=== PATIENT | female | born 1950 | race Caucasian/White ===

== ENCOUNTER 2023-07-12 14:03 | Inpatient (IN) | payer MEDICARE, SELFPAY ==
--- NOTE | ~2023-07-12 | US_ITS ---
Ultrasound paracentesis History: Ascites. Retroperitoneal mass Risks and benefits and possible complications were discussed with the patient and consent form was signed. A safe pocket of ascitic fluid was identified using ultrasound guidance, and the overlying skin was marked. The abdomen prepped and draped in sterile fashion. 1% lidocaine was used as a local anesthetic. Using ultrasound guidance, a 5 fr catheter was placed into the ascitic pocket. 1.0 liters of de la o fluid was removed passively. The catheter was then removed. A few artist's representative images from before and after the examination were obtained. The procedure was performed by Gal Jiménez PA-C and supervised by Dr. Duarte. US/US paracentesis abd w/image Impression: Ultrasound-guided paracentesis as described above. No immediate complications
--- NOTE | ~2023-07-12 | CT_ITS ---
EXAMINATION: CT ANGIOGRAM OF THE CHEST WITH AND WITHOUT CONTRAST (CT PULMONARY ANGIOGRAM FOR PE) CLINICAL INFORMATION: Reason for Exam SOB COMPARISON: None available. TECHNIQUE: Prior to contrast administration, noncontrast localization images were obtained. Subsequently, multidetector volumetric imaging was performed from the thoracic inlet to below the diaphragms following the administration of 80 mL Omnipaque 350 intravenous contrast. No contrast reaction reported Sagittal, coronal, and MIP oblique sagittal reformatted images were obtained on the CT workstation, uploaded to PACS, and reviewed. This CT examination was performed using dose optimization techniques as appropriate, variously including the following: *Automated exposure control *Adjustment of mA and/or kV according to patient size (this includes techniques or standardized protocols for targeted exams where dose is matched to indication/reason for exam; i.e. extremities or head) *Use of iterative reconstruction technique Total exam dose-length product 249 mGy-cm FINDINGS: QUALITY OF STUDY/CONTRAST BOLUS: Satisfactory. PULMONARY ARTERIES: No large central emboli, there are very small peripheral nonocclusive filling defect in peripheral branches interlobar suggesting small emboli. Carreno images. No cardiac strain or septal bowing. THORACIC AORTA: No aneurysm. LUNG: Compression atelectasis at lung bases bilaterally due to adjacent pleural effusion. No CT evidence of pulmonary metastasis. PLEURA: Bilateral pleural effusions right more than left. MEDIASTINUM: There are enlarged anterior mediastinal carinal lymph nodes. Pretracheal lymph node measures 1.3 x 1.1 cm. No evidence of septal bowing or right heart strain. CORONARY ARTERY CALCIFICATION: Few coronary calcifications. CHEST WALL/AXILLA: No axillary or internal mammary lymphadenopathy. OSSEOUS STRUCTURES: No acute or suspicious osseous abnormality. UPPER ABDOMEN: Unremarkable. No reflux of contrast into the hepatic veins to suggest elevated right heart pressures. CT/CT angio chest PE protocol IMPRESSION: 1. No large central emboli, there are very small peripheral nonocclusive filling defects in peripheral branches suggesting small emboli found in peripheral branches to left lower lobe, Carreno images.. 2. Bilateral pleural effusions right more than left. 3. Compression atelectasis at lung bases bilaterally. 4. Enlarged mediastinal lymph nodes concerning for possible metastasis.. VTE: positive. (Referring physician staff is being called, by physician staff assistance, to be alerted of the above critical findings and recommendations.) 07/12/2023 8:01 PM EM
--- NOTE | ~2023-07-12 | US_ITS ---
EXAMINATION: US VENOUS ULTRASOUND WITH DOPPLER LOWER EXTREMITY, BILATERAL CLINICAL INFORMATION: Pain and edema. Pulmonary embolism. COMPARISON: None available. TECHNIQUE: Ultrasound of the deep veins is performed from the hip to the calf with compression sonography and color and pulse Doppler assessment. Spectral analysis with color-flow imaging is performed. FINDINGS: RIGHT: There is normal venous compression and respiratory variation and augmented flow. The visualized common femoral vein, superficial femoral vein, profunda femoral vein, popliteal vein, and the trifurcation region shows no evidence of deep venous thrombosis. There is no significant popliteal fossa cyst. LEFT: There is normal venous compression and respiratory variation and augmented flow. The visualized common femoral vein, superficial femoral vein, profunda femoral vein, popliteal vein, and the trifurcation region shows no evidence of deep venous thrombosis. There is no significant popliteal fossa cyst. If the patient's symptoms persist, followup ultrasound in 5 days 7 days might be of value to exclude proximal propagation from a non-visualized calf vein. US/US venous duplex LE BI IMPRESSION: No DVT demonstrated in the bilateral lower extremities.
--- NOTE | ~2023-07-12 | CT_ITS ---
EXAMINATION: CT abdomen pelvis w IV con CLINICAL INFORMATION: Reason for Exam Abdominal pain COMPARISON: No prior CT available for comparison. TECHNIQUE: Multidetector volumetric imaging was performed from the superior aspect of the liver through the pubic symphysis 85 mL Omnipaque 350 injected Sagittal and coronal reformatted images were obtained on the technologist's workstation. This CT examination was performed using dose optimization techniques as appropriate, variously including the following: *Automated exposure control *Adjustment of mA and/or kV according to patient size (this includes techniques or standardized protocols for targeted exams where dose is matched to indication/reason for exam; i.e. extremities or head) *Use of iterative reconstruction technique DLP: 932 mGy-cm FINDINGS: LOWER THORAX: Bilateral pleural effusion and atelectasis at lung bases. HEPATOBILIARY: No focal hepatic lesions. No biliary ductal dilatation. GALLBLADDER: Gallbladder not visualized might have been removed or contracted. SPLEEN: Spleen is normal in size. PANCREAS: Small atrophic pancreas. STOMACH AND GASTROINTESTINAL TRACT: Stomach is decompressed unopacified. There is a small sliding hiatal hernia. No evidence of bowel obstruction. Not visualized might have been obscured. ADRENALS: No adrenal nodules. KIDNEYS/URETERS: No hydronephrosis, stones or solid mass lesions. URINARY BLADDER: Bladder is decompressed unopacified. PELVIC VISCERA: There is a free fluid in the dependent portion of the pelvis. PERITONEUM: There is large amount of ascites. LYMPH NODES: Coalescence of bulky soft tissue retroperitoneal mass engulfing the aorta and IVC measures 9.6 x 5.1 cm, most likely bulky lymphadenopathy raising concern for lymphoma, multiple large mesenteric lymph nodes and soft tissue opacities concerning for mesenteric seeding, large abdominal central mass 11.5 x 8.5 cm, which could be a coalescence of mesenteric lymph nodes or peritoneal mass such as GI ST tumor among others. VASCULAR:Aorta is normal in size encased by retroperitoneal adenopathy, mild atheromatous plaques, no aneurysm. BONES, ABDOMINAL WALL AND SOFT TISSUES: Age-appropriate changes of the spine and skeletal system, no destructive osteolytic or osteosclerotic bone lesion found CT/CT abdomen pelvis w IV con IMPRESSION: 1. Coalescence of bulky soft tissue retroperitoneal mass engulfing the aorta and IVC measures 9.6 x 5.1 cm, multiple large mesenteric lymph nodes and soft tissue opacities concerning for mesenteric seeding, large abdominal central mass 11.5 x 8.5 cm, which could be a coalescence of mesenteric lymph nodes or peritoneal mass such neoplasm as GIST tumor among others. 2. Large amount of ascites. Ultrasound-guided peritoneal paracentesis could be utilized for oncology analysis. 3. Bilateral pleural effusion and atelectasis at lung bases. 4. Atrophic pancreas.
--- NOTE | 2023-07-12 14:08 | ECG_ITS ---
Test Reason : WEAKNESS Blood Pressure : / mmHG Vent. Rate : 099 BPM Atrial Rate : 099 BPM P-R Int : 192 ms QRS Dur : 150 ms QT Int : 410 ms P-R-T Axes : 000 -16 125 degrees QTc Int : 526 ms Sinus rhythm with Premature atrial complexes Left bundle branch block Abnormal ECG No previous ECGs available Referred By: Yuliet Olivier Electronically Signed By:LEONOR CRONIN MD
[2023-07-12 14:21] VITALS: BP 109/63; PULSE 98; RESP 20; TEMP 36.6; O2SAT 95; BMI 30.1
--- NOTE | 2023-07-12 14:25 | ED.GENADULT ---
HPI - General Adult General Chief complaint: Back Pain/Injury Stated complaint: Unable to ambulate/Not eating Time Seen by Provider: 07/12/23 16:12 History of Present Illness HPI narrative: 73 y/o F patient; PMH T2DM not currently on any medications or followed with a doctor; presents from home reporting decreased ambulation secondary to lower back pain that radiates into her abdomen. She states she has had this pain since a chiropractor adjusted her spine in December 2022. She came in today reporting worsening of the pain. She states she has been taking aspirin for pain control and using a heating pad around the clock. She otherwise endorses a loss of appetite due to her pain. for the last 2 - 3 months. She states she has not seen a doctor in several years. 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 Family (son) at bedside are also concerned that patient has significant lower extremity swelling. Patient does endorse worsening shortness of breath with exertion. Related Data Allergies Allergy/AdvReac Type Severity Reaction Status Date / Time lactose Allergy Gastrointestinal Verified 07/12/23 14:28 Upset Review of Systems Review of Systems: Yes all other systems are reviewed and are negative [facility] Past Medical History Attestation statement: The following information was validated with the patient. Source: unable to obtain Social History Social History Smoked in Last 30 Days: No Use of substances other than those prescribed or required for medical reasons: No Advance Directives: No Advance Directives Information Provided: No Do you have a plan to hurt others: No Plan Physical Exam ED Vital Signs: Vital Signs - 24 hr 07/12/23 14:21 07/12/23 18:20 07/12/23 19:38 Temperature 97.9 F 96.9 F 97.9 F Pulse Rate 98 103 H 98 Respiratory Rate 20 14 18 Blood Pressure 109/63 117/69 106/56 L Pulse Oximetry 95 92 96 Oxygen Delivery Method Room Air Room Air Room Air 07/12/23 20:24 Temperature Pulse Rate Respiratory Rate Blood Pressure 106/61 Pulse Oximetry Oxygen Delivery Method BMI result Body Mass Index 30.1 Patient is afebrile and hemodynamically stable Const General: cooperative HENMT Head: Yes normal to inspection and Yes atraumatic Eyes General: appearance normal, both eyes and all related structures Pupils: Equal, round and reactive pupils present EOM: EOMs intact bilaterally Neck Neck: Yes normal visual inspection, Yes full ROM, Yes supple and No tender Chest Chest palpation & inspection: normal inspection of the chest and normal palpation of entire chest wall Resp Effort & Inspection: normal respiratory effort, able to speak in complete sentences, no cough and no respiratory distress Auscultation: clear to auscultation bilaterally Cardio Other: 2 - 3+ bilateral lower extremity edema Rate: regular rate Rhythm: regular rhythm Peripheral pulses: Peripheral pulses 2+ throughout GI Other: Abdomen is significantly distended with non-focal abdominal tenderness Palpation (GI): Soft to palpation, not firm, no guarding and not rigid Auscultation: normal bowel sounds Back/Spine/Pelvis Cervical Spine: normal cervical lordosis and cervical ROM normal Thoracic/Lumbar Spine: thoracic and lumbar spine normal to inspection Neuro Cranial nerves: Yes Equal, round and reactive pupils present Course Course Course Narrative: This is an RME done by DEONNA Olivier: Additional HPI, ROS, PE not included below will be deferred to primary provider. 73 year old female presents w/ back pain X 7.5 months worsening after chiropractor manipulated back yesterday. Reports cant walk since then. Unable to walk due to back wont support me . Reports legs have been swelling recently also. Feeling weak overall. Hasnt been feeling well. Urinating less than usual however no incontience of stool or urine. NO saddle paresthesias. Appearance: Alert.? Oriented X3.? No acute cardiopulmonary distress distress.? Head: Normocephalic, atraumatic, no step-offs or deformities Neck: Normal inspection.? Neck supple.? CVS: Pulses normal.? 2+ pitting edema b/l Respiratory: No respiratory distress.? Skin: ? Normal skin color. Extremities: Global weakness. Back: No midline tenderness, no C-spine tenderness, full range of motion, No CVA tenderness bilaterally. Painful rom to back Neuro: Oriented X 3.? No motor deficit.? No sensory deficit. Reports cant walk due to weakness and pain Reevaluation(s) Reevaluation #1: Patient is afebrile and hemodynamically stable. Labs reviewed: Noted to have thrombocythemia. Anion gap 21. Magnesium 1.7. Repleted. BNP 857. Albumin 3.2, protein 6.1. Elevated betahydroxybuterate. Suspect anion gap and betahydroxybuterate 2/2 to starvation ketoacidosis. Concern elevated BNP with lower extremity edema and ascites 2/[address] CT with bulky soft tissue retroperitoneal mass engulfing the aorta and IVC with multiple large mesenteric lymph nodes and soft tissue opacities. Large amount of ascites. Bilateral pleural effusions. No large central emboli but very small peripheral nonocclusive filling defects in peripheral branches suggesting small emboli in LLL. CT with concern for malignancy of unknown origin. Given new likely malignancy, significant ascites, bilateral pleural effusions, and elevated BNP with low albumin/protein - will plan on admission to hospital. Provided dose Lasix 20mg IV for lasix naive patient. Provided dose Lovenox for PE therapeutic treatment at 1mg/kg dosing. Plan: Admit to hospitalist Condition: Stable Medications Administered Discontinued Medications Generic Name Dose Route Start Last Admin Trade Name Freq PRN Reason Stop Dose Admin Furosemide 20 mg 07/12/23 20:09 07/12/23 20:24 Furosemide 20 Mg/2 Ml Vial IVPUSH 07/12/23 20:10 20 mg ONCE ONE Administration Protocol Magnesium Sulfate/Dextrose 1 gm in 100 mls @ 100 mls/hr 07/12/23 20:01 07/12/23 20:26 Magnesium Sulfate/D5w IV 07/12/23 21:00 100 mls/hr ONCE ONE Administration Iohexol 100 ml 07/12/23 17:08 07/12/23 17:09 Iohexol 350 Mg/Ml 100 Ml Infus..Btl IV 07/12/23 17:09 85 ml ONCE ONE Administration Medical Decision Making Lab Data 07/12/23 14:16 07/12/23 14:16 Labs: Lab Results 07/12/23 07/12/23 07/12/23 Range/Units 14:16 16:43 17:59 WBC 9.7 (4.8-10.8) X10*3/uL RBC 4.77 (4.20-5.50) X10*6/uL Hgb 12.9 (12.0-16.0) g/dl Hct 39.6 (37.0-47.0) % MCV 83.0 (80.0-98.0) fL MCH 27.0 (27.0-33.0) pg MCHC 32.6 (31.0-35.0) g/dl RDW 14.5 (11.0-16.0) % Plt Count 546 H (160-400) X10*3/uL MPV 9.5 (9.4-12.3) fL Immature Gran % (Auto) 0.6 H (0.0-0.4) % Neut % (Auto) 80.3 H (45-73) % Lymph % (Auto) 11.8 L (20-40) % [place] % (Auto) 6.7 (2-11) % Eos % (Auto) 0.1 (0-4) % Baso % (Auto) 0.5 (0-2) % Lymph # (Auto) 1.2 (1.2-4.9) X10*3/uL [place] # (Auto) 0.7 (0.1-1.2) X10*3/uL Eos # (Auto) 0.0 (0.0-0.4) X10*3/uL Baso # (Auto) 0.1 (0.0-0.2) X10*3/uL Abs Immat Gran (auto) 0.06 H (0.00-0.03) X10*3/uL Absolute Neuts (auto) 7.8 (2.0-8.3) x10*3/uL Absolute Nucleated RBC 0.000 (0.0-0.012) X10*3/uL Nucleated RBC % (auto) 0.0 (0.0-0.2) /100WBC ESR 44 H (0-20) MM/HR VBG pH (7.32-7.43) VBG pCO2 mmHg VBG pO2 mmHg VBG HCO3 (22-26) mmol/L VBG O2 Saturation % VBG Base Excess mmol/L Sodium 138 (135-145) mmol/L Potassium 3.8 (3.3-5.1) mmol/L Chloride 100 (96-108) mmol/L Carbon Dioxide 21 L (22-29) mmol/L Anion Gap 21 H (12-20) BUN 15 (9-16) mg/dL Creatinine 0.91 (0.5-1.4) mg/dL Estim Creat Clear Calc 52.4 Estimated GFR > 60 Random Glucose 123 H (60-115) mg/dL Estimat Average Glucose 157 mg/dL Hemoglobin A1c % 7.1 H (<6.0) % Lactic Acid 1.0 (0.5-2.0) mmol/L Calcium 9.1 (8.4-10.2) mg/dL Magnesium 1.7 (1.6-2.6) mg/dL Total Bilirubin 0.5 (0.0-1.0) mg/dL AST 35 H (5-31) U/L ALT < 5 (0-31) U/L Alkaline Phosphatase 71 (39-117) U/L Troponin I High Sens 17.0 (<3.5-17.0) ng/L C-Reactive Protein 6.11 H (< or = 0.50) mg/dL B-Natriuretic Peptide 857 H (<100) pg/mL Total Protein 6.1 L (6.5-8.0) g/dL Albumin 3.2 L (3.5-5.0) g/dL Triglycerides 129 (<150) mg/dL Cholesterol 184 (<200) mg/dL LDL Cholesterol, Calc 126 H (<100) mg/dL HDL Cholesterol 33 L (>40) mg/dL Lipase 9 (8-78) U/L Beta-Hydroxybutyrate 2.65 H 2.93 H (0.02-0.27) mmol/L Ethyl Alcohol < 10 mg/dL Influenza Type A (PCR) NEGATIVE (Negative) Influenza Type B (PCR) NEGATIVE (Negative) RSV RNA Qual (PCR) NEGATIVE (Negative) SARS-CoV-2 RNA (RT-PCR) NEGATIVE (Negative) 07/12/23 Range/Units 18:02 WBC (4.8-10.8) X10*3/uL RBC (4.20-5.50) X10*6/uL Hgb (12.0-16.0) g/dl Hct (37.0-47.0) % MCV (80.0-98.0) fL MCH (27.0-33.0) pg MCHC (31.0-35.0) g/dl RDW (11.0-16.0) % Plt Count (160-400) X10*3/uL MPV (9.4-12.3) fL Immature Gran % (Auto) (0.0-0.4) % Neut % (Auto) (45-73) % Lymph % (Auto) (20-40) % [place] % (Auto) (2-11) % Eos % (Auto) (0-4) % Baso % (Auto) (0-2) % Lymph # (Auto) (1.2-4.9) X10*3/uL [place] # (Auto) (0.1-1.2) X10*3/uL Eos # (Auto) (0.0-0.4) X10*3/uL Baso # (Auto) (0.0-0.2) X10*3/uL Abs Immat Gran (auto) (0.00-0.03) X10*3/uL Absolute Neuts (auto) (2.0-8.3) x10*3/uL Absolute Nucleated RBC (0.0-0.012) X10*3/uL Nucleated RBC % (auto) (0.0-0.2) /100WBC ESR (0-20) MM/HR VBG pH 7.44 H (7.32-7.43) VBG pCO2 38 mmHg VBG pO2 45 mmHg VBG HCO3 26 (22-26) mmol/L VBG O2 Saturation 71.0 % VBG Base Excess 2.8 mmol/L Sodium (135-145) mmol/L Potassium (3.3-5.1) mmol/L Chloride (96-108) mmol/L Carbon Dioxide (22-29) mmol/L Anion Gap (12-20) BUN (9-16) mg/dL Creatinine (0.5-1.4) mg/dL Estim Creat Clear Calc Estimated GFR Random Glucose (60-115) mg/dL Estimat Average Glucose mg/dL Hemoglobin A1c % (<6.0) % Lactic Acid (0.5-2.0) mmol/L Calcium (8.4-10.2) mg/dL Magnesium (1.6-2.6) mg/dL Total Bilirubin (0.0-1.0) mg/dL AST (5-31) U/L ALT (0-31) U/L Alkaline Phosphatase (39-117) U/L Troponin I High Sens (<3.5-17.0) ng/L C-Reactive Protein (< or = 0.50) mg/dL B-Natriuretic Peptide (<100) pg/mL Total Protein (6.5-8.0) g/dL Albumin (3.5-5.0) g/dL Triglycerides (<150) mg/dL Cholesterol (<200) mg/dL LDL Cholesterol, Calc (<100) mg/dL HDL Cholesterol (>40) mg/dL Lipase (8-78) U/L Beta-Hydroxybutyrate (0.02-0.27) mmol/L Ethyl Alcohol mg/dL Influenza Type A (PCR) (Negative) Influenza Type B (PCR) (Negative) RSV RNA Qual (PCR) (Negative) SARS-CoV-2 RNA (RT-PCR) (Negative) Radiology Impression Discussion of test interpretation with radiology: I have reviewed the radiologist's reading. Radiologist Impression: EXAMINATION: CT abdomen pelvis w IV con CLINICAL INFORMATION: Reason for Exam Abdominal pain COMPARISON: No prior CT available for comparison. TECHNIQUE: Multidetector volumetric imaging was performed from the superior aspect of the liver through the pubic symphysis 85 mL Omnipaque 350 injected Sagittal and coronal reformatted images were obtained on the technologist's workstation. This CT examination was performed using dose optimization techniques as appropriate, variously including the following: *Automated exposure control *Adjustment of mA and/or kV according to patient size (this includes techniques or standardized protocols for targeted exams where dose is matched to indication/reason for exam; i.e. extremities or head) *Use of iterative reconstruction technique DLP: 932 mGy-cm FINDINGS: LOWER THORAX: Bilateral pleural effusion and atelectasis at lung bases. HEPATOBILIARY: No focal hepatic lesions. No biliary ductal dilatation. GALLBLADDER: Gallbladder not visualized might have been removed or contracted. SPLEEN: Spleen is normal in size. PANCREAS: Small atrophic pancreas. STOMACH AND GASTROINTESTINAL TRACT: Stomach is decompressed unopacified. There is a small sliding hiatal hernia. No evidence of bowel obstruction. Not visualized might have been obscured. ADRENALS: No adrenal nodules. KIDNEYS/URETERS: No hydronephrosis, stones or solid mass lesions. URINARY BLADDER: Bladder is decompressed unopacified. PELVIC VISCERA: There is a free fluid in the dependent portion of the pelvis. PERITONEUM: There is large amount of ascites. LYMPH NODES: Coalescence of bulky soft tissue retroperitoneal mass engulfing the aorta and IVC measures 9.6 x 5.1 cm, most likely bulky lymphadenopathy raising concern for lymphoma, multiple large mesenteric lymph nodes and soft tissue opacities concerning for mesenteric seeding, large abdominal central mass 11.5 x 8.5 cm, which could be a coalescence of mesenteric lymph nodes or peritoneal mass such as GI ST tumor among others. VASCULAR:Aorta is normal in size encased by retroperitoneal adenopathy, mild atheromatous plaques, no aneurysm. BONES, ABDOMINAL WALL AND SOFT TISSUES: Age-appropriate changes of the spine and skeletal system, no destructive osteolytic or osteosclerotic bone lesion found CT/CT abdomen pelvis w IV con IMPRESSION: 1. Coalescence of bulky soft tissue retroperitoneal mass engulfing the aorta and IVC measures 9.6 x 5.1 cm, multiple large mesenteric lymph nodes and soft tissue opacities concerning for mesenteric seeding, large abdominal central mass 11.5 x 8.5 cm, which could be a coalescence of mesenteric lymph nodes or peritoneal mass such neoplasm as GIST tumor among others. 2. Large amount of ascites. Ultrasound-guided peritoneal paracentesis could be utilized for oncology analysis. 3. Bilateral pleural effusion and atelectasis at lung bases. 4. Atrophic pancreas. EXAMINATION: CT ANGIOGRAM OF THE CHEST WITH AND WITHOUT CONTRAST (CT PULMONARY ANGIOGRAM FOR PE) CLINICAL INFORMATION: Reason for Exam SOB COMPARISON: None available. TECHNIQUE: Prior to contrast administration, noncontrast localization images were obtained. Subsequently, multidetector volumetric imaging was performed from the thoracic inlet to below the diaphragms following the administration of 80 mL Omnipaque 350 intravenous contrast. No contrast reaction reported Sagittal, coronal, and MIP oblique sagittal reformatted images were obtained on the CT workstation, uploaded to PACS, and reviewed. This CT examination was performed using dose optimization techniques as appropriate, variously including the following: *Automated exposure control *Adjustment of mA and/or kV according to patient size (this includes techniques or standardized protocols for targeted exams where dose is matched to indication/reason for exam; i.e. extremities or head) *Use of iterative reconstruction technique Total exam dose-length product 249 mGy-cm FINDINGS: QUALITY OF STUDY/CONTRAST BOLUS: Satisfactory. PULMONARY ARTERIES: No large central emboli, there are very small peripheral nonocclusive filling defect in peripheral branches interlobar suggesting small emboli. Carreno images. No cardiac strain or septal bowing. THORACIC AORTA: No aneurysm. LUNG: Compression atelectasis at lung bases bilaterally due to adjacent pleural effusion. No CT evidence of pulmonary metastasis. PLEURA: Bilateral pleural effusions right more than left. MEDIASTINUM: There are enlarged anterior mediastinal carinal lymph nodes. Pretracheal lymph node measures 1.3 x 1.1 cm. No evidence of septal bowing or right heart strain. CORONARY ARTERY CALCIFICATION: Few coronary calcifications. CHEST WALL/AXILLA: No axillary or internal mammary lymphadenopathy. OSSEOUS STRUCTURES: No acute or suspicious osseous abnormality. UPPER ABDOMEN: Unremarkable. No reflux of contrast into the hepatic veins to suggest elevated right heart pressures. CT/CT angio chest PE protocol IMPRESSION: 1. No large central emboli, there are very small peripheral nonocclusive filling defects in peripheral branches suggesting small emboli found in peripheral branches to left lower lobe, Carreno images.. 2. Bilateral pleural effusions right more than left. 3. Compression atelectasis at lung bases bilaterally. 4. Enlarged mediastinal lymph nodes concerning for possible metastasis.. Discharge Plan Discharge Clinical Impression: Mass of soft tissue, Abdominal ascites, Pleural effusion Patient Disposition: Admitted As Inpatient Print Language: Burkinan
[2023-07-12 14:28] LABS: MANUAL DIFF FLAG NO
[2023-07-12 14:36] LABS: Basophils Absolute Auto 0.1 X10*3/uL (0.0-0.2); Basophils Percent Auto 0.5 % (0-2); Eosinophils Percent Auto 0.1 % (0-4); Hematocrit 39.6 % (37.0-47.0); Hemoglobin 12.9 g/dl (12.0-16.0); Imm Gran Abs Auto 0.06 X10*3/uL (0.00-0.03); Imm Gran Pct Auto 0.6 % (0.0-0.4); Lymphocytes Absolute Auto 1.2 X10*3/uL (1.2-4.9); Lymphocytes Percent Auto 11.8 % (20-40); Mean Corpuscular HGB Conc 32.6 g/dl (31.0-35.0); Mean Platelet Volume 9.5 fL (9.4-12.3); Monocytes Absolute Auto 0.7 X10*3/uL (0.1-1.2); Monocytes Percent Auto 6.7 % (2-11); Neutrophils Absolute Auto 7.8 x10*3/uL (2.0-8.3); Neutrophils Percent Auto 80.3 % (45-73); Platelet Count 546 X10*3/uL (160-400); Red Blood Count 4.77 X10*6/uL (4.20-5.50); Red Cell Distribution Width 14.5 % (11.0-16.0); White Blood Count 9.7 X10*3/uL (4.8-10.8)
[2023-07-12 14:55] LABS: Alanine Aminotransferase < 5 U/L (0-31); Albumin Level 3.2 g/dL (3.5-5.0); Alkaline Phosphatase 71 U/L (39-117); Anion Gap 21 (12-20); Aspartate Amino Transferase 35 U/L (5-31); Bilirubin Total 0.5 mg/dL (0.0-1.0); Blood Urea Nitrogen 15 mg/dL (9-16); C Reactive Protein 6.11 mg/dL (< or = 0.50); Calcium 9.1 mg/dL (8.4-10.2); Carbon Dioxide 21 mmol/L (22-29); Chloride 100 mmol/L (96-108); Creatinine Clr Calc Pharmacy 52.4; Estimated Glomerular Filt Rate > 60; Ethanol < 10 mg/dL; Glucose Random 123 mg/dL (60-115); Magnesium 1.7 mg/dL (1.6-2.6); Potassium 3.8 mmol/L (3.3-5.1); Sodium 138 mmol/L (135-145); Total Protein 6.1 g/dL (6.5-8.0)
[2023-07-12 15:37] LABS: B Type Natriuretic Peptide 857 pg/mL (<100)
[2023-07-12 15:45] LABS: Influenza A PCR NEGATIVE (Negative); Influenza B PCR NEGATIVE (Negative); Resp Syncy Virus RNA Qual PCR NEGATIVE (Negative); SARS COV2 PCR INHOUSE NEGATIVE (Negative)
[2023-07-12] MEDS: iohexoL 350 MG/ML 100 ML INFUS..BTL IV (17:09)
[2023-07-12 17:12] LABS: Beta-Hydroxybutyrate 2.65 mmol/L (0.02-0.27); Cholesterol 184 mg/dL (<200); HDL Cholesterol 33 mg/dL (>40); LDL Cholesterol Calculated 126 mg/dL (<100); Lipase 9 U/L (8-78); Triglycerides 129 mg/dL (<150)
[2023-07-12 17:43] LABS: Erythrocyte Sedimentation Rate 44 MM/HR (0-20)
[2023-07-12 18:09] LABS: VBG Base Excess 2.8 mmol/L; VBG HCO3 26 mmol/L (22-26); VBG pCO2 38 mmHg; VBG pH 7.44 (7.32-7.43); VBG pO2 45 mmHg
[2023-07-12 18:10] LABS: Venous Blood Gas Refer to POC result
[2023-07-12 18:20] VITALS: BP 117/69; PULSE 103; RESP 14; TEMP 36.1; O2SAT 92
[2023-07-12 18:26] LABS: Beta-Hydroxybutyrate 2.93 mmol/L (0.02-0.27)
[2023-07-12 18:48] LABS: Estimated Average Glucose 157 mg/dL; Hemoglobin A1c % 7.1 % (<6.0)
[2023-07-12 19:38] VITALS: BP 106/56; PULSE 98; RESP 18; TEMP 36.6; O2SAT 96
--- NOTE | 2023-07-12 19:39 | MHC.EDTECH ---
This tech took over care of patient at 1900,hourly rounds and vitals completed. Bladder Scanned patient per order and is 405 RN Roseann made aware.family at bedside and call orr in reach
[2023-07-12 20:24] VITALS: BP 106/61
[2023-07-12] MEDS: Furosemide 20 MG/2 ML VIAL IVPUSH (20:24)
--- NOTE | 2023-07-12 20:24 | P.HPHOSP_ITS ---
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 Patient regularly sees a chiropractor for chronic lower back pain, and reports symptoms began last November when she began experiencing lower back pain after one of her chiropractic adjustments. Has experienced chronic back pain since then which has been constantly present, though waxing and waning in intensity. Yesterday pt's chiropractic session left her in excruciating pain and has had difficulty ambulating since then. Patient describes her pain as beginning in her back and wrapping around her upper abdomen, worse in the LUQ and RUQ. Reports increased lower leg edema times 1-2 months, increased shortness of breath and difficulty breathing especially on exertion. He is only able to walk few feet without having to stop to catch her breath. Noticed abdominal swelling and distention only a few days ago. States she has not been eating or drinking much lately and has had increasing fatigue especially in the past few months. Denies fever, chills, nausea, vomiting. No diarrhea. Denies chest pain/pressure, palpitations. In the ED pt was Labs were significant for AST 35, C-reactive protein 6.11, BNP 857, protein 6.1, albumin 3.2, beta hydroxybutyrate 2.65. Tested negative for flu, RSV, and COVID. CT?of abdomen and pelvis found bulky soft tissue retroperitoneal mass engulfing the aorta and IVC measuring 9.6 x 5.1 cm, multiple large mesenteric lymph nodes, soft tissue opacities, and large abdominal central mass measuring 11.5 x 8.5 cm. Also found a large amount of ascites and bilateral pleural effusions and atelectasis at lung bases. CTA of chest found no large central emboli but evidence of small emboli in peripheral branches of left lower lobe. Also found bilateral pleural effusions with right more than left, compression atelectasis at lung bases bilaterally, and enlarged mediastinal lymph nodes concerning for possible metastasis. EKG demonstrated sinus rhythm with PACs and left bundle branch block with QTc prolonged at [address] elevations in V1, V2, and V3. No prior EKGs for comparison. Pt was treated with furosemide 20 mg IV magnesium sulfate 1 g. Pt will be admitted to the hospital for treatment and further evaluation of intractable abdominal and back pain, ascites, and lower leg edema in the setting of multiple abdominal masses suspicious for malignancy, as well as left lower lobe pulmonary emboli. Review of Systems 2 Review of Systems: Lower back pain Upper abdominal pain Lower leg edema Increased shortness of breath and RIZZO Abdominal swelling Anorexia Denies fever, chills, nausea, vomiting, diarrhea PMFSH Medical History (Updated 07/12/23 @ 23:26 by DEONNA Iverson) Diet-controlled type 2 diabetes mellitus Social History Patient Tobacco Use Status: Never used Tobacco Meds Allergies Allergy/AdvReac Type Severity Reaction Status Date / Time lactose Allergy Gastrointestinal Verified 07/12/23 14:28 Upset Active Medications: Current Medications Magnesium Sulfate/Dextrose (Magnesium Sulfate/D5w) 1 gm in 100 mls @ 100 mls/hr IV ONCE ONE Stop: 07/12/23 21:00 Home Medications ?Medication ?Instructions ?Recorded ?Confirmed ?Last Taken ?Type No Known Home Meds 07/12/23 07/12/23 Unknown History Physical Exam 2 Vital Signs and Narrative: Vital Signs: Last Vital Signs Temp 97.9 F 07/12/23 19:38 Pulse 98 07/12/23 19:38 Resp 18 07/12/23 19:38 BP 106/56 L 07/12/23 19:38 Pulse Ox 96 07/12/23 19:38 O2 Del Method Room Air 07/12/23 19:38 BMI result Body Mass Index 30.1 Constitutional: Alert, in no acute distress. Mental Status: Oriented to person, place and time. Eyes: Pupils are equal, round, and reactive to light. Ear, Nose, and Throat: Oropharynx clear, mucous membranes moist. Ears and nose without deformities. Trachea midline. Respiratory: Clear to auscultation bilaterally. No wheezing, rales, or rhonchi. Cardiovascular: S1, S2 regular. 2/6 murmurs heard at left sternal border. Gastrointestinal: Abdomen firm, distended, with RUQ and LUQ tenderness. Normal bowel sounds. Neurologic: Cranial nerves II-XII are grossly intact bilaterally. No focal neurological deficits. Moves all extremities spontaneously. Skin: Warm, dry. Back: Lower leg sided tenderness. Extremities: 2+ bilateral lower leg pitting edema. Psychiatric: Normal mood and affect. Results Labs 07/12/23 14:16 07/12/23 14:16 Labs: Laboratory Results - last 24 hr 07/12/23 07/12/23 07/12/23 14:16 16:43 17:59 MCV 83.0 MCH 27.0 MCHC 32.6 RDW 14.5 Plt Count 546 H MPV 9.5 Immature Gran % (Auto) 0.6 H Neut % (Auto) 80.3 H Lymph % (Auto) 11.[address] [place] % (Auto) 6.7 Eos % (Auto) 0.1 Baso % (Auto) 0.5 Lymph # (Auto) 1.2 [place] # (Auto) 0.7 Eos # (Auto) 0.0 Baso # (Auto) 0.1 Abs Immat Gran (auto) 0.06 H Absolute Neuts (auto) 7.8 Absolute Nucleated RBC 0.000 Nucleated RBC % (auto) 0.0 ESR 44 H VBG pH VBG pCO2 VBG pO2 VBG HCO3 VBG O2 Saturation VBG Base Excess Anion Gap 21 H Estim Creat Clear Calc 52.4 Estimated GFR > 60 Random Glucose 123 H Estimat Average Glucose 157 Hemoglobin A1c % 7.1 H Lactic Acid 1.0 Calcium 9.1 Magnesium 1.7 Total Bilirubin 0.5 AST 35 H ALT < 5 Alkaline Phosphatase 71 Troponin I High Sens 17.0 C-Reactive Protein 6.11 H B-Natriuretic Peptide 857 H Total Protein 6.1 L Albumin 3.2 L Triglycerides 129 Cholesterol 184 LDL Cholesterol, Calc 126 H HDL Cholesterol 33 L Lipase 9 Beta-Hydroxybutyrate 2.65 H 2.93 H Ethyl Alcohol < 10 Influenza Type A (PCR) NEGATIVE Influenza Type B (PCR) NEGATIVE RSV RNA Qual (PCR) NEGATIVE SARS-CoV-2 RNA (RT-PCR) NEGATIVE 07/12/23 18:02 MCV MCH MCHC RDW Plt Count MPV Immature Gran % (Auto) Neut % (Auto) Lymph % (Auto) [place] % (Auto) Eos % (Auto) Baso % (Auto) Lymph # (Auto) [place] # (Auto) Eos # (Auto) Baso # (Auto) Abs Immat Gran (auto) Absolute Neuts (auto) Absolute Nucleated RBC Nucleated RBC % (auto) ESR VBG pH 7.44 H VBG pCO2 38 VBG pO2 45 VBG HCO3 26 VBG O2 Saturation 71.0 VBG Base Excess 2.8 Anion Gap Estim Creat Clear Calc Estimated GFR Random Glucose Estimat Average Glucose Hemoglobin A1c % Lactic Acid Calcium Magnesium Total Bilirubin AST ALT Alkaline Phosphatase Troponin I High Sens C-Reactive Protein B-Natriuretic Peptide Total Protein Albumin Triglycerides Cholesterol LDL Cholesterol, Calc HDL Cholesterol Lipase Beta-Hydroxybutyrate Ethyl Alcohol Influenza Type A (PCR) Influenza Type B (PCR) RSV RNA Qual (PCR) SARS-CoV-2 RNA (RT-PCR) Imaging Radiologist's Impressions: Impressions Abdomen/Pelvis CT 07/12/23 17:14 IMPRESSION: 1. Coalescence of bulky soft tissue retroperitoneal mass engulfing the aorta and IVC measures 9.6 x 5.1 cm, multiple large mesenteric lymph nodes and soft tissue opacities concerning for mesenteric seeding, large abdominal central mass 11.5 x 8.5 cm, which could be a coalescence of mesenteric lymph nodes or peritoneal mass such neoplasm as GIST tumor among others. 2. Large amount of ascites. Ultrasound-guided peritoneal paracentesis could be utilized for oncology analysis. 3. Bilateral pleural effusion and atelectasis at lung bases. 4. Atrophic pancreas. Chest CTA 07/12/23 17:14 IMPRESSION: 1. No large central emboli, there are very small peripheral nonocclusive filling defects in peripheral branches suggesting small emboli found in peripheral branches to left lower lobe, Carreno images.. 2. Bilateral pleural effusions right more than left. 3. Compression atelectasis at lung bases bilaterally. 4. Enlarged mediastinal lymph nodes concerning for possible metastasis.. VTE: positive. 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 Pulmonary emboli CTA of chest showing left lower lung pulmonary emboli Will treat with therapeutic Lovenox 80 mg subcu b.i.d., started 07/12/2023 Will get venous duplex ultrasound of lower legs bilaterally Monitor on telemetry Patient with intractable abdominal and lower back pain Likely secondary to retroperitoneal and peritoneal masses seen on CT Concerning for malignancy with metastasis Analgesics for pain management Oncology consult PT consult for difficulty walking secondary to pain Ascites Likely secondary to abdominal masses Will schedule paracentesis with possible mass biopsy Will give albumin Follow peritoneal fluid labs Question of CHF Patient with lower leg edema, elevated BNP, pleural effusions, increasing SOB CT of abd showing soft tissue mass engulfing IVC and aorta Will treat with Lasix 20 mg IV daily Follow lytes, Mag, I/O Daily weights, low-salt diet Echocardiogram Cardiology consult Admit to telemetry Left bundle branch block EKG showing left bundle-branch block and ST elevations in V1, V2, and V3 Patient asymptomatic: No chest pain/pressure, palpitations No prior EKGs on record for comparison Cardiology consult Monitor on telemetry Full Code Attending:?Dr. Singletary DVT Prophylaxis: On therapeutic Lovenox Pt will require a hospitalization of at least two nights for treatment of?multiple issues, including pulmonary emboli, intractable abdominal and back pain, ascites, and lower leg edema in the setting abdominal masses concerning for malignancy. Quality Stroke Does the patient have a stroke diagnosis?: No VTE Prior VTE?: No VTE Risk Level:: Medical - moderate - high VTE Device Contraindication: Treatment Not Indicated VTE Drug Contraindication: N/A - Med Ordered
[2023-07-12] MEDS: Magnesium Sulfate/D5W 1 GM/100 ML PIGGYBACK IV (20:26)
--- NOTE | 2023-07-12 21:09 | MHC.EDTECH ---
Patient got up to commode with a 1 assist,patient urinated 200MLS of yellow urine,sample collected and sent to lab.
[2023-07-12 21:23] LABS: Amphetamine Screen Urine Not Detected (Not Detect); Barbiturates, Urine Not Detected (Not Detect); Benzodiazepines Screen Urine Not Detected (Not Detect); Buprenorphine Scr Not Detected (Not Detect); Cannabinoid Screen Urine Not Detected (Not Detect); Cocaine Screen Urine Not Detected (Not Detect); Fentanyl, urine Not Detected (Not Detect); Methadone Screen, Urine Not Detected (Not Detect); Opiate Screen Urine Not Detected (Not Detect); Oxycodone Screen Urine Not Detected (Not Detect); Phencyclidine Screen Urine Not Detected (Not Detect)
[2023-07-12 22:00] VITALS: BP 123/68; PULSE 97; RESP 16; TEMP 36.8; O2SAT 94
--- NOTE | 2023-07-12 22:09 | MHC.EDTECH ---
Hourly rounds and vitals completed,patient is resting at this time. Belongings list completed and copy placed in chart
[2023-07-12] MEDS: Enoxaparin Sodium 80 MG/0.8 ML SYRINGE SUBCUT (22:15)
[2023-07-12 23:06] LABS: INTERNATIONAL NORM RATIO 1.1 (0.9-1.1); Prothrombin Time 13.5 SEC (11.1-13.3)
[2023-07-12 23:09] LABS: Partial Thromboplastin Time 36.5 SEC (26.0-36.8)
[2023-07-12 23:26] VITALS: BP 105/52; PULSE 94; RESP 16; TEMP 36.9; O2SAT 94
--- NOTE | 2023-07-12 23:30 | MHC.EDTECH ---
Hourly rounds and vitals complete, water given per request of patient,call orr in reach
[2023-07-13] VITALS (9 sets, daily range): BP systolic 94–132; BP diastolic 48–73; PULSE 76–88; RESP 16–18; TEMP 36.5–36.7; O2SAT 92–96
[2023-07-13] MEDS: 0.9 % Sodium Chloride Flush 3 ML SYRINGE IVFLUSH ×4 (00:40→23:35)
[2023-07-13] MEDS: Albumin Human 25 % 100 ML IV ×2 (00:41→02:20)
--- NOTE | 2023-07-13 02:30 | MHC.EDTECH ---
Patient got up to commode with minimal assistance,patient urinated hourly rounds and vitals completed,call orr in reach
--- NOTE | 2023-07-13 02:31 | PC.NURSE ---
Patient denies allergy to Morphine, stating that she had it in the past without allergic reactions. Dr Singletary notified, per OK to administer Morphine for pain management.
[2023-07-13] MEDS: Morphine Sulfate 4 MG/ML CARTRIDGE IVPUSH ×2 (02:33→23:39)
--- NOTE | 2023-07-13 03:43 | MHC.EDTECH ---
Hourly rounds and vitals completed,BP is low 94/54 RN was made aware.Patient is resting at this time,call orr in reach
[2023-07-13 04:32] LABS: Hematocrit 32.1 % (37.0-47.0); Hemoglobin 10.3 g/dl (12.0-16.0); Mean Corpuscular HGB Conc 32.1 g/dl (31.0-35.0); Mean Corpuscular Volume 84.3 fL (80.0-98.0); Mean Platelet Volume 9.7 fL (9.4-12.3); Platelet Count 427 X10*3/uL (160-400); Red Blood Count 3.81 X10*6/uL (4.20-5.50); Red Cell Distribution Width 14.6 % (11.0-16.0); White Blood Count 9.2 X10*3/uL (4.8-10.8)
[2023-07-13 04:53] LABS: Anion Gap 21 (12-20); Blood Urea Nitrogen 16 mg/dL (9-16); Carbon Dioxide 20 mmol/L (22-29); Chloride 99 mmol/L (96-108); Creatinine Clr Calc Pharmacy 50.8; Estimated Glomerular Filt Rate 58; Glucose Random 113 mg/dL (60-115); Magnesium 1.9 mg/dL (1.6-2.6); Potassium 3.4 mmol/L (3.3-5.1); Sodium 137 mmol/L (135-145)
--- NOTE | 2023-07-13 07:00 | CA_ITS ---
Transthoracic Echocardiogram Patient (Last, First, Middle): Corazon Pagan, Gender: Female Date of : 1950 Age: 73 Procedure Date: 07/13/2023 Procedure Type: Transthoracic Echocardiogram Location: ER Height: 160.02 cm Weight: 77.11 kg BSA: 1.80 m2 Heart Rate: bpm BP: 120 / 54 mmHg Sweat Band Separator: DANO Referring MD: Yury YING Umbrella Tipper Machine: Cj Tariq MD Symptoms: Elevated BNP, LLE abd mass engulfing IVC and aorta Study Quality: Adequate ECG Rhythm: Sinus Conclusions: - 1. Moderately dilated left ventricle with severely reduced LV ejection fraction of 15-20% 2. Mildly dilated left atrium 3. Moderate low-flow aortic stenosis 4. Moderate mitral calcification with mild mitral regurgitation 5. Normal RV systolic pressure and normal right atrial pressures 6. No gross pericardial effusion Findings Procedure Information Contrast agent, definity, is being given per protocol without apparent complications. Left Ventricle Moderately increased left ventricular cavity size. There is normal left ventricular wall thickness. The left ventricular systolic function is severely decreased. The visually estimated ejection fraction is between 15 20%. There is paradoxical septal motion consistent with a left bundle branch block. Diastolic function is indeterminate on the basis of available data. Right Ventricle Normal right ventricular cavity size and systolic function. Atria The left atrium is mildly dilated. Interatrial shunt cannot be excluded. The right atrium is normal in size. Aortic Valve There is moderate calcification of the aortic valve. There is mild thickening of the aortic valve. There is moderate aortic valve stenosis. The peak aortic gradient is 20 mmHg.The mean gradient is 11 mmHg. The aortic valve area is 1.22 cm2. There is no aortic valve regurgitation. Mitral Valve There is mild anterior and severe posterior mitral leaflet thickening. There is moderate mitral annular calcification. There is mild mitral valve regurgitation. There is no mitral valve stenosis. Pulmonic Valve The pulmonic valve was not well visualized. Tricuspid Valve Likely normal tricuspid valve structure and function. There is mild tricuspid valve regurgitation. The right ventricular systolic pressure is normal. The right ventricular systolic pressure is 28 mmHg. Normal right atrial pressure. There is no evidence of pulmonary hypertension. Great Vessels The aorta was not well visualized. The pulmonary artery was not well visualized. Venous The inferior vena cava is normal in size and collapses greater than 50% with inspiration. Pericardium/Pleural There is no evidence of pericardial effusion. Prior Study Comparison No prior study available for comparison. Measurements 2D Linear Measurements IVSd: 0.75 0.6-0.9/0.6-1.0 cm LVIDd: 5.90 3.9-5.3/4.2-5.9 cm LVIDd Index: 3.28 2.4-3.2/2.2-3.1 cm/m2 LVIDs: 5.49 2.0-3.6 cm LVPWd: 0.85 0.7-1.1 cm Ao Root: 3.20 2.1-3.5 cm LA Diam: 3.80 2.7-3.8/3.0-4.0 cm LAIDs Index: 2.11 1.5-2.3 cm/m2 LV Mass: 224.28 67-162/88-224 g LV Mass Index: 124.60 43-95/49-115 g/m2 LVOT Diam: 2.20 3.0+(-)1.3 cm 2D Systolic Function EF 4C: 7.98 >55% EF 2C: 24.10 >55% EF BiP: 19.30 >55% Mitral Valve MV VTI: 0.41 MV Pk [place]: 1.75 MV Mn [place]: 0.84 MV Pk Grad: 12.00 MV Mn Grad: 4.00 MV Pk E: 1.45 MV Decel Time: 173.00 E'Lateral: 11.50 E'Medial: 7.07 E/E' Med: 20.50 E/E' Lat: 12.60 PHT: 51.00 MVA PHT: 4.31 MVA Continuity: 1.58 Decel Boyd: 8.39 Aortic Valve AoV Pk [place]: 2.24 AoV Mn [place]: 1.57 AoV VTI: 0.52 AoV Pk Grad: 20.00 Aov Mn Grad: 11.00 YONI Cont.VTI: 1.22 LVOT LVOT Pk [place]: 0.68 LVOT Mn [place]: 0.42 LVOT VTI: 0.17 LVOT Pk Grad: 2.00 LVOT Mn Grad: 1.00 LVOT Diam: 2.20 LVOT Area: 3.80 Diastolic Function MV Pk E: 1.45 E'Medial: 7.07 E/E' Med: 20.50 E' Laterial: 11.50 E/E' Lat: 12.60 Right Ventricle TAPSE (mm): 25.00 TVS' [place]: 9.00 Tricuspid Valve TR Pk [place]: 2.24 TR Pk Grad: 20.00 RA Press: 8.00 RVSP: 28.00 Great Vessels Aorta Ao Root-2D: 3.20 2.0-3.7 cm Pulmonary Valve PV Pk [place]: 1.12 Peak PV Grad: 5.00 Updated in Other Vendor System with Status of Final Cj Traiq MD electronically signed on 07/13/2023 2:38:04 PM with status of Final
--- NOTE | 2023-07-13 07:11 | PHA.MEDREC ---
Pharmacy Consult ? Medication Reconciliation Pharmacy has completed the medication reconciliation. Reviewed med rec done by nursing (Roseann). Patient also has no claim history.
[2023-07-13] MEDS: Furosemide 20 MG/2 ML VIAL IVPUSH (09:12)
[2023-07-13] MEDS: Enoxaparin Sodium 80 MG/0.8 ML SYRINGE 75 MG SUBCUT ×2 (09:13→23:34)
--- NOTE | 2023-07-13 09:28 | PC.NURSE ---
Alert and oriented, reports feeling better and that swelling in ankles has improved. Denies pain or discomfort, ate small amount for breakfast
--- NOTE | 2023-07-13 14:04 | P.CONCA_ITS ---
History of Present Illness History of Present Illness Date of Service: 07/13/23 Requesting physician: Suri Blair Consult reason: other (Elevated BNP, left bundle-branch block) Chief complaint: Ascites, LLE, multiple masses, ?CHF Narrative: I was consulted to see Corazon in cardiology consultation today as she came in with back pain which was unrelenting. Patient has not seen any physician for the last 5 years and says she has not on any home medications. She has diet- controlled diabetes. She had no other symptoms except for she is noticing leg swelling over the last few weeks in his also notice abdominal gradually swell up but she blames this sinus surgery many years ago although she has had abdominal enlargement over the last few weeks. She also complains of shortness of breath on exertion. Denies any exertional chest pain. No lightheadedness, syncope. Came to the hospital for the back pain and subsequently was noted to have bilateral small pulmonary embolism abdominal CT showing a large retroperitoneal mass and golfing the aorta in the IVC of unclear etiology with mediastinal lymphadenopathy consistent with metastatic disease. EKG showed left bundle- branch block. BNP was elevated at 850 range. She denies any orthopnea, PND although has leg edema as mentioned above. No palpitations, lightheadedness, syncope. Review of Systems 2 Constitutional: Constitutional: Reports weakness Eyes: Eyes: Reports no additional eye complaints Cardiovascular: Cardiovascular: Reports Abdominal Distension, Denies chest pain, Denies syncope, Reports leg edema, Denies palpitations, Reports dyspnea on exertion and Denies orthopnea Respiratory: Respiratory: Reports dyspnea on exertion Genitourinary: Genitourinary: Reports no additional female genitourinary complaints Neurologic: Denies syncope and Reports weakness Psychiatric: Psychiatric: Reports no additional psychiatric complaints Endocrine: Endocrine: Denies palpitations Allergic/Immunologic: Allergic/Immunologic: Reports no additional allergic/immunologic complaints [facility] Past Medical History Medical History Diet-controlled type 2 diabetes mellitus Social History Social History Patient Tobacco Use Status: Never used Tobacco Smoked in Last 30 Days: No Use of substances other than those prescribed or required for medical reasons: No Advance Directives: No Advance Directives Information Provided: No Do you have a plan to hurt others: No Plan Nutrition Risks: No Nutritional Risk Meds Allergies Allergy/AdvReac Type Severity Reaction Status Date / Time acetaminophen [From Tylenol] Allergy Difficulty Verified 07/13/23 00:37 Breathing hydromorphone Allergy Difficulty Verified 07/13/23 00:38 Breathing lactose Allergy Gastrointestinal Verified 07/12/23 14:28 Upset codeine AdvReac Intermediate Difficulty Verified 07/13/23 00:38 Breathing Active Medications: Current Medications Acetaminophen (Acetaminophen 325 Mg Tablet) 650 mg PO Q6H PRN PRN Reason: Mild pain, fever, or headache Benzonatate (Benzonatate 100 Mg Capsule) 100 mg PO TID PRN PRN Reason: Cough Docusate Sodium (Docusate Sodium 100 Mg Capsule) 100 mg PO DAILY PRN PRN Reason: Constipation Enoxaparin Sodium (Enoxaparin Sodium 80 Mg/0.8 Ml Syringe) 75 mg SUBCUT Q12H [facility] Last Admin: 07/13/23 09:13 Dose: 75 mg Furosemide (Furosemide 20 Mg/2 Ml Vial) 20 mg IVPUSH DAILY [facility]; Protocol Last Admin: 07/13/23 09:12 Dose: 20 mg Melatonin (Melatonin 3 Mg Tablet) 6 mg PO BEDTIME PRN PRN Reason: Insomnia Morphine Sulfate (Morphine Sulfate 4 Mg/Ml Cartridge) 4 mg IVPUSH Q4H PRN; Protocol PRN Reason: Pain, Severe (Pain Scale 7-10) Last Admin: 07/13/23 02:33 Dose: 4 mg Ondansetron HCl (Ondansetron Hcl 4 Mg/2 Ml Vial) 4 mg IVPUSH Q8H PRN PRN Reason: Nausea and Vomiting Sodium Chloride (0.9 % Sodium Chloride Flush 3 Ml Syringe) 3 ml IVFLUSH QSHIFT [facility] Last Admin: 07/13/23 09:13 Dose: 3 ml Home Medications ?Medication ?Instructions ?Recorded ?Confirmed ?Last Taken ?Type No Known Home Meds 07/12/23 07/12/23 Unknown History Physical Exam 2 Vital Signs: Vital Signs: Last Vital Signs Temp 98 F 07/13/23 08:00 Pulse 85 07/13/23 08:00 Resp 18 07/13/23 08:00 BP 120/54 L 07/13/23 09:12 Pulse Ox 96 07/13/23 08:00 O2 Del Method Room Air 05/18/24 07:30 BMI result Body Mass Index 30.1 Const: General: cooperative, comfortable, alert, awake and other (Pale) N utritional Appearance: overweight Orientation/consciousness: patient oriented x3 HEENT: Head: Yes normocephalic and Yes atraumatic Neck: Neck: Yes trachea midline, Yes supple and Yes no JVD Resp: Effort & Inspection: normal respiratory effort Auscultation: no rales, no rhonchi and breath sounds absent (Basis) Cardio: Jugular venous distension: no JVD Palpation: abnormal PMI displaced PMI Rhythm: regular rhythm Heart sounds: S1 normal heart sound present, S2 normal heart sound present, no click, no gallops and no murmurs GI: Auscultation: normal bowel sounds Skin: General skin exam: no rashes or lesions noted Neuro: General: patient oriented x3 Extrem: General: No clubbing, No cyanosis and Yes edema Objective Labs and Meds 07/13/23 04:11 07/13/23 04:11 Lab results: Laboratory Results - last 24 hr 07/12/23 07/12/23 07/12/23 14:16 16:43 17:59 WBC 9.7 RBC 4.77 Hgb 12.9 Hct 39.6 MCV 83.0 MCH 27.0 MCHC 32.6 RDW 14.5 Plt Count 546 H MPV 9.5 Immature Gran % (Auto) 0.6 H Neut % (Auto) 80.3 H Lymph % (Auto) 11.8 L [place] % (Auto) 6.7 Eos % (Auto) 0.1 Baso % (Auto) 0.5 Lymph # (Auto) 1.2 [place] # (Auto) 0.7 Eos # (Auto) 0.0 Baso # (Auto) 0.1 Abs Immat Gran (auto) 0.06 H Absolute Neuts (auto) 7.8 Absolute Nucleated RBC 0.000 Nucleated RBC % (auto) 0.0 ESR 44 H PT INR APTT VBG pH VBG pCO2 VBG pO2 VBG HCO3 VBG O2 Saturation VBG Base Excess Sodium 138 Potassium 3.8 Chloride 100 Carbon Dioxide 21 L Anion Gap 21 H BUN 15 Creatinine 0.91 Estim Creat Clear Calc 52.4 Estimated GFR > 60 Random Glucose 123 H Estimat Average Glucose 157 Hemoglobin A1c % 7.1 H Lactic Acid 1.0 Calcium 9.1 Magnesium 1.7 Total Bilirubin 0.5 AST 35 H ALT < 5 Alkaline Phosphatase 71 Troponin I High Sens 17.0 C-Reactive Protein 6.11 H B-Natriuretic Peptide 857 H Total Protein 6.1 L Albumin 3.2 L Triglycerides 129 Cholesterol 184 LDL Cholesterol, Calc 126 H HDL Cholesterol 33 L Lipase 9 Beta-Hydroxybutyrate 2.65 H 2.93 H Urine Opiates Screen Ur Buprenorphine Scrn Ur Oxycodone Screen Urine Methadone Screen Urine Fentanyl Screen Ur Barbiturates Screen Ur Phencyclidine Scrn Ur Amphetamines Screen U Benzodiazepines Scrn Urine Cocaine Screen U Marijuana (THC) Screen Ethyl Alcohol < 10 Influenza Type A (PCR) NEGATIVE Influenza Type B (PCR) NEGATIVE RSV RNA Qual (PCR) NEGATIVE SARS-CoV-2 RNA (RT-PCR) NEGATIVE 07/12/23 07/12/23 07/12/23 18:02 21:08 22:56 WBC RBC Hgb Hct MCV MCH MCHC RDW Plt Count MPV Immature Gran % (Auto) Neut % (Auto) Lymph % (Auto) [place] % (Auto) Eos % (Auto) Baso % (Auto) Lymph # (Auto) [place] # (Auto) Eos # (Auto) Baso # (Auto) Abs Immat Gran (auto) Absolute Neuts (auto) Absolute Nucleated RBC Nucleated RBC % (auto) ESR PT 13.5 H INR 1.1 APTT 36.5 VBG pH 7.44 H VBG pCO2 38 VBG pO2 45 VBG HCO3 26 VBG O2 Saturation 71.0 VBG Base Excess 2.8 Sodium Potassium Chloride Carbon Dioxide Anion Gap BUN Creatinine Estim Creat Clear Calc Estimated GFR Random Glucose Estimat Average Glucose Hemoglobin A1c % Lactic Acid Calcium Magnesium Total Bilirubin AST ALT Alkaline Phosphatase Troponin I High Sens C-Reactive Protein B-Natriuretic Peptide Total Protein Albumin Triglycerides Cholesterol LDL Cholesterol, Calc HDL Cholesterol Lipase Beta-Hydroxybutyrate Urine Opiates Screen Not Detected Ur Buprenorphine Scrn Not Detected Ur Oxycodone Screen Not Detected Urine Methadone Screen Not Detected Urine Fentanyl Screen Not Detected Ur Barbiturates Screen Not Detected Ur Phencyclidine Scrn Not Detected Ur Amphetamines Screen Not Detected U Benzodiazepines Scrn Not Detected Urine Cocaine Screen Not Detected U Marijuana (THC) Screen Not Detected Ethyl Alcohol Influenza Type A (PCR) Influenza Type B (PCR) RSV RNA Qual (PCR) SARS-CoV-2 RNA (RT-PCR) 07/13/23 04:11 WBC 9.2 RBC 3.81 L D Hgb 10.3 L D Hct 32.1 L MCV 84.3 MCH 27.0 MCHC 32.1 RDW 14.6 Plt Count 427 H MPV 9.7 Immature Gran % (Auto) Neut % (Auto) Lymph % (Auto) [place] % (Auto) Eos % (Auto) Baso % (Auto) Lymph # (Auto) [place] # (Auto) Eos # (Auto) Baso # (Auto) Abs Immat Gran (auto) Absolute Neuts (auto) Absolute Nucleated RBC 0.000 Nucleated RBC % (auto) 0.0 ESR PT INR APTT VBG pH VBG pCO2 VBG pO2 VBG HCO3 VBG O2 Saturation VBG Base Excess Sodium 137 Potassium 3.4 Chloride 99 Carbon Dioxide 20 L Anion Gap 21 H BUN 16 Creatinine 0.94 Estim Creat Clear Calc 50.8 Estimated GFR 58 Random Glucose 113 Estimat Average Glucose Hemoglobin A1c % Lactic Acid Calcium 9.0 Magnesium 1.9 Total Bilirubin AST ALT Alkaline Phosphatase Troponin I High Sens C-Reactive Protein B-Natriuretic Peptide Total Protein Albumin Triglycerides Cholesterol LDL Cholesterol, Calc HDL Cholesterol Lipase Beta-Hydroxybutyrate Urine Opiates Screen Ur Buprenorphine Scrn Ur Oxycodone Screen Urine Methadone Screen Urine Fentanyl Screen Ur Barbiturates Screen Ur Phencyclidine Scrn Ur Amphetamines Screen U Benzodiazepines Scrn Urine Cocaine Screen U Marijuana (THC) Screen Ethyl Alcohol Influenza Type A (PCR) Influenza Type B (PCR) RSV RNA Qual (PCR) SARS-CoV-2 RNA (RT-PCR) EKG shows normal sinus rhythm with left bundle-branch block. Imaging Radiologist's impression: Impressions Abdomen/Pelvis CT 07/12/23 17:14 IMPRESSION: 1. Coalescence of bulky soft tissue retroperitoneal mass engulfing the aorta and IVC measures 9.6 x 5.1 cm, multiple large mesenteric lymph nodes and soft tissue opacities concerning for mesenteric seeding, large abdominal central mass 11.5 x 8.5 cm, which could be a coalescence of mesenteric lymph nodes or peritoneal mass such neoplasm as GIST tumor among others. 2. Large amount of ascites. Ultrasound-guided peritoneal paracentesis could be utilized for oncology analysis. 3. Bilateral pleural effusion and atelectasis at lung bases. 4. Atrophic pancreas. Chest CTA 07/12/23 17:14 IMPRESSION: 1. No large central emboli, there are very small peripheral nonocclusive filling defects in peripheral branches suggesting small emboli found in peripheral branches to left lower lobe, Carreno images.. 2. Bilateral pleural effusions right more than left. 3. Compression atelectasis at lung bases bilaterally. 4. Enlarged mediastinal lymph nodes concerning for possible metastasis.. VTE: positive. (Referring physician staff is being called, by physician staff assistance, to be alerted of the above critical findings and recommendations.) 07/12/2023 8:01 PM EM Venous Duplex 07/12/23 22:00 IMPRESSION: No DVT demonstrated in the bilateral lower extremities. Assessment and Plan (1) Cardiomyopathy: Status: Acute Preliminary echo findings shows severe LV systolic dysfunction. Unclear as to the etiology as well as length of cardiomyopathy. Has underlying left bundle- branch block. Unclear as to how long she has had left bundle-branch block. Ischemia needs to be ruled out eventually although her main issue appears to be a large abdominal mass which is most likely responsible for abdominal distension leg edema. However congestive heart failure can not be entirely ruled out. Will suggest to gently diuresed with Lasix 20 mg IV b.i.d.. Continue monitor strict intake and output chart and continue monitor renal function as well as BNP. Would start her on low-dose valsartan therapy with 20 mg b.i.d. valsartan. Eventually if the blood pressure is tolerated will switch her to Entresto therapy. Once clinically more fluid euvolemic will start on metoprolol therapy for neurohormonal modulation as well. Will follow with you Procedures Date of Service Date of Service: 07/13/23
--- NOTE | 2023-07-13 14:33 | MHC.CM.PN ---
IMM 07/12. Pt self-care, lives at home alone in apartment, however 4 other relatives live in same apartment. HCP completed with pt, now on file. Pts son to transport her home at discharge. Pt does not have a PCP, local list given to pt.
--- NOTE | 2023-07-13 14:45 | MHC.EDTECH ---
patient requested a purewick be placed due to her having more and more trouble standing and transfering to the commode. this tech placed a purewick and patient tolerated well/
--- NOTE | 2023-07-13 15:35 | PM.HEMONCCN ---
Subjective - Subjective Chief complaint: abdominal tumor Patient: new to practice Consult date: 07/13/23 Primary Care Provider: None Physician HPI - Consult Narrative Reason for consult: abdominal tumor, ascites, adebopathy Narrative: Corazon Pagan is a 73 year old female with no PCP presenting with abdominal pain, mass, ascites and weakness. Review of Systems - Constitutional Reports anorexia - ENT Reports system reviewed and no additional complaints, except as documented - Cardiovascular Reports fast heart rate, Reports shortness of breath when lying down - Respiratory Reports dyspnea - Gastrointestinal Reports abdominal pain - Neurologic Reports system reviewed and no additional complaints, except as documented, Reports weakness, Denies syncope [facility] Medical History: Medical History (Last Reviewed 07/13/23 @ 14:11 by Cj Tariq MD) Diet-controlled type 2 diabetes mellitus Social History: Social History (Last Reviewed 07/13/23 @ 14:11 by Cj Tariq MD) Alcohol History Details: 1. How often do you have a drink containing alcohol?: a. Never AUDIT-C Alcohol total score: 0 Tobacco History: Patient Tobacco Use Status: Never used Tobacco Smoked in Last 30 Days: No Substance Use History: Use of substances other than those prescribed or required for medical reasons: No Advance Directives: Advance Directives: No Advance Directives Information Provided: No Homicidal Assessment: Do you have a plan to hurt others: No Plan Nutrition Assessment: Nutrition Risks: No Nutritional Risk Occupation Assessmet: service: No Home Medications and Allergies Current Medications: Current Medications Acetaminophen (Acetaminophen 325 Mg Tablet) 650 mg PO Q6H PRN PRN Reason: Mild pain, fever, or headache Benzonatate (Benzonatate 100 Mg Capsule) 100 mg PO TID PRN PRN Reason: Cough Docusate Sodium (Docusate Sodium 100 Mg Capsule) 100 mg PO DAILY PRN PRN Reason: Constipation Enoxaparin Sodium (Enoxaparin Sodium 80 Mg/0.8 Ml Syringe) 75 mg SUBCUT Q12H [facility] Last Admin: 07/13/23 09:13 Dose: 75 mg Furosemide (Furosemide 20 Mg/2 Ml Vial) 20 mg IVPUSH DAILY [facility]; Protocol Last Admin: 07/13/23 09:12 Dose: 20 mg Melatonin (Melatonin 3 Mg Tablet) 6 mg PO BEDTIME PRN PRN Reason: Insomnia Morphine Sulfate (Morphine Sulfate 4 Mg/Ml Cartridge) 4 mg IVPUSH Q4H PRN; Protocol PRN Reason: Pain, Severe (Pain Scale 7-10) Last Admin: 07/13/23 02:33 Dose: 4 mg Ondansetron HCl (Ondansetron Hcl 4 Mg/2 Ml Vial) 4 mg IVPUSH Q8H PRN PRN Reason: Nausea and Vomiting Sodium Chloride (0.9 % Sodium Chloride Flush 3 Ml Syringe) 3 ml IVFLUSH QSHIFT [facility] Last Admin: 07/13/23 09:13 Dose: 3 ml Home Medications ?Medication ?Instructions ?Recorded ?Confirmed ?Type No Known Home Meds 07/12/23 07/12/23 History Allergies Allergy/AdvReac Type Severity Reaction Status Date / Time acetaminophen [From Tylenol] Allergy Difficulty Verified 07/13/23 00:37 Breathing hydromorphone Allergy Difficulty Verified 07/13/23 00:38 Breathing lactose Allergy Gastrointestinal Verified 07/12/23 14:28 Upset codeine AdvReac Intermediate Difficulty Verified 07/13/23 00:38 Breathing Physical Exam Vital signs: Vital Signs Temp 98 F 07/13/23 08:00 Pulse 85 07/13/23 08:00 Resp 18 07/13/23 08:00 BP 120/54 L 07/13/23 09:12 Pulse Ox 96 07/13/23 08:00 O2 Del Method Room Air 07/13/23 07:30 Intake & Output 07/12/23 07/13/23 07/13/23 18:59 06:59 18:59 Intake Total 300 / 300 Balance 300 / 300 Intake: Intake, IV Amount 300 / 300 Albumin Human 25 % 100 ml @ 100 200 / 200 mls/hr IV Q1H [facility] Rx#: [id number] Magnesium Sulfate/D5W 1 gm In 100 / 100 100 ml @ 100 mls/hr IV ONCE ONE Rx#:[id number] Other: Number of Unmeasured Voids 1 Weight 77.111 kg Weight 77.111 kg - Constitutional Present: no acute distress - Routine HEENT Exam Head: Present: atraumatic, normocephalic - Routine Neck Exam Present: supple - Routine Respiratory Exam Present: decreased breath sounds - Routine Cardiovascular Exam Cardiovascular: Present: RRR - Routine Abdominal Exam Present: diminished bowel sounds, distended, hypoactive bowel sounds, mass, soft, tenderness - Routine Extremities Exam Present: pedal edema, tenderness - Routine Neurological Exam Present: alert, oriented X3 Hem/Onc Consult Result - Labs CBC & Chem 7: 07/13/23 04:11 07/13/23 04:11 Labs: Short CBC 07/13/23 Range/Units 04:11 WBC 9.2 (4.8-10.8) X10*3/uL Hgb 10.3 L D (12.0-16.0) g/dl Hct 32.1 L (37.0-47.0) % Plt Count 427 H (160-400) X10*3/uL BMP 07/13/23 04:11 Sodium 137 Potassium 3.4 Chloride 99 Carbon Dioxide 20 L BUN 16 Creatinine 0.94 Calcium 9.0 Assessment and Plan Patient Active problem list reviewed?: Yes (1) Mass of soft tissue Status: Acute Assessment and plan: The treatment of the embolism is the first priority. She allowed a breast exam which was unremarkable. We will need a paracentesis with cytology. We should have Asim 125, CA 19.9, CEA, stool sampless for occult blood, tunnel kiln firer exam. I have spoke withDr. Johnnie nava. - Time Spent With Patient Time Spent with Patient (in minutes): 25
--- NOTE | 2023-07-13 16:57 | P.PNIM_ITS ---
Subjective Subjective Date of Service: 07/13/23 Interval History: Complaining of abdominal and back discomfort, complaining of poor appetite and decreased by mouth intake, denies nausea, no vomiting, no headache, no fevers, no chills, no other acute issues overnight. Review of Systems All other system reviewed and negative Physical Exam 2 Vital Signs: Vital Signs: Last Vital Signs Temp 98 F 07/13/23 08:00 Pulse 85 07/13/23 08:00 Resp 18 07/13/23 08:00 BP 120/54 L 07/13/23 09:12 Pulse Ox 96 07/13/23 08:00 O2 Del Method Room Air 07/13/23 07:30 BMI result Body Mass Index 30.1 Const: Other: General awake alert x3, in no acute distress. Anicteric sclera Neck supple no JVD. CVS regular rate rhythm, Respiratory lungs clear , diminished , no respiratory distress, no wheeze, no rhonchi. Gastrointestinal abdomen distended mild discomfort both upper quadrants, bowel sounds audible, no guarding , no rigidity. Extremities bilateral edema. Neuro non focal Skin no rash Psych appropriate affect Objective Data Active Medications Acetaminophen (Acetaminophen 325 Mg Tablet) 650 mg PO Q6H PRN PRN Reason: Mild pain, fever, or headache Benzonatate (Benzonatate 100 Mg Capsule) 100 mg PO TID PRN PRN Reason: Cough Docusate Sodium (Docusate Sodium 100 Mg Capsule) 100 mg PO DAILY PRN PRN Reason: Constipation Enoxaparin Sodium (Enoxaparin Sodium 80 Mg/0.8 Ml Syringe) 75 mg SUBCUT Q12H [facility] Last Admin: 07/13/23 09:13 Dose: 75 mg Documented By: RITU Furosemide (Furosemide 20 Mg/2 Ml Vial) 20 mg IVPUSH DAILY [facility]; Protocol Last Admin: 07/13/23 09:12 Dose: 20 mg Documented By: RITU Melatonin (Melatonin 3 Mg Tablet) 6 mg PO BEDTIME PRN PRN Reason: Insomnia Morphine Sulfate (Morphine Sulfate 4 Mg/Ml Cartridge) 4 mg IVPUSH Q4H PRN; Protocol PRN Reason: Pain, Severe (Pain Scale 7-10) Last Admin: 07/13/23 02:33 Dose: 4 mg Documented By: YUE Ondansetron HCl (Ondansetron Hcl 4 Mg/2 Ml Vial) 4 mg IVPUSH Q8H PRN PRN Reason: Nausea and Vomiting Sodium Chloride (0.9 % Sodium Chloride Flush 3 Ml Syringe) [facility] Last Admin: 07/13/23 09:13 Dose: 3 ml Documented By: RITU Labs 07/13/23 04:11 07/13/23 04:11 Labs: Laboratory Results - last 24 hr 07/12/23 07/12/23 07/12/23 14:16 16:43 17:59 MCV MCH MCHC RDW Plt Count MPV Absolute Nucleated RBC Nucleated RBC % (auto) ESR 44 H PT INR APTT VBG pH VBG pCO2 VBG pO2 VBG HCO3 VBG O2 Saturation VBG Base Excess Anion Gap Estim Creat Clear Calc Estimated GFR Random Glucose Estimat Average Glucose 157 Hemoglobin A1c % 7.1 H Lactic Acid 1.0 Calcium Magnesium Triglycerides 129 Cholesterol 184 LDL Cholesterol, Calc 126 H HDL Cholesterol 33 L Lipase 9 Beta-Hydroxybutyrate 2.65 H 2.93 H Urine Opiates Screen Ur Buprenorphine Scrn Ur Oxycodone Screen Urine Methadone Screen Urine Fentanyl Screen Ur Barbiturates Screen Ur Phencyclidine Scrn Ur Amphetamines Screen U Benzodiazepines Scrn Urine Cocaine Screen U Marijuana (THC) Screen 07/12/23 07/12/23 07/12/23 18:02 21:08 22:56 MCV MCH MCHC RDW Plt Count MPV Absolute Nucleated RBC Nucleated RBC % (auto) ESR PT 13.5 H INR 1.1 APTT 36.5 VBG pH 7.44 H VBG pCO2 38 VBG pO2 45 VBG HCO3 26 VBG O2 Saturation 71.0 VBG Base Excess 2.8 Anion Gap Estim Creat Clear Calc Estimated GFR Random Glucose Estimat Average Glucose Hemoglobin A1c % Lactic Acid Calcium Magnesium Triglycerides Cholesterol LDL Cholesterol, Calc HDL Cholesterol Lipase Beta-Hydroxybutyrate Urine Opiates Screen Not Detected Ur Buprenorphine Scrn Not Detected Ur Oxycodone Screen Not Detected Urine Methadone Screen Not Detected Urine Fentanyl Screen Not Detected Ur Barbiturates Screen Not Detected Ur Phencyclidine Scrn Not Detected Ur Amphetamines Screen Not Detected U Benzodiazepines Scrn Not Detected Urine Cocaine Screen Not Detected U Marijuana (THC) Screen Not Detected 07/13/23 04:11 MCV 84.3 MCH 27.0 MCHC 32.1 RDW 14.6 Plt Count 427 H MPV 9.7 Absolute Nucleated RBC 0.000 Nucleated RBC % (auto) 0.0 ESR PT INR APTT VBG pH VBG pCO2 VBG pO2 VBG HCO3 VBG O2 Saturation VBG Base Excess Anion Gap 21 H Estim Creat Clear Calc 50.8 Estimated GFR 58 Random Glucose 113 Estimat Average Glucose Hemoglobin A1c % Lactic Acid Calcium 9.0 Magnesium 1.9 Triglycerides Cholesterol LDL Cholesterol, Calc HDL Cholesterol Lipase Beta-Hydroxybutyrate Urine Opiates Screen Ur Buprenorphine Scrn Ur Oxycodone Screen Urine Methadone Screen Urine Fentanyl Screen Ur Barbiturates Screen Ur Phencyclidine Scrn Ur Amphetamines Screen U Benzodiazepines Scrn Urine Cocaine Screen U Marijuana (THC) Screen Assessment and Plan (1) Cardiomyopathy: Status: Acute (2) Pulmonary emboli: Status: Acute (3) Pleural effusion: Status: Acute (4) Abdominal ascites: Status: Acute (5) Mass of soft tissue: Status: Acute Plan 73-year-old female with PMH significant for diet controlled type 2 diabetes not on home medications 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 Pulmonary emboli Complaining of mild shortness of breath worse with activity CTA of chest showing left lower lung pulmonary emboli Continue therapeutic Lovenox 80 mg subcu b.i.d., started 07/12/2023 venous duplex ultrasound of lower legs showed no DVT Intractable abdominal and lower back pain Likely secondary to retroperitoneal and peritoneal masses seen on CT Concerning for malignancy with metastasis Analgesics for pain management Seen by Dr. Duffy from Oncology he recommend CA 19-9, CA 125, CEA and stool guaiac PT consult for difficulty walking secondary to pain Ascites Likely secondary to abdominal masses paracentesis with possible mass biopsy and cytology s/p albumin Follow peritoneal fluid labs Acute CHF with reduced EF Persistent lower leg edema, elevated BNP, pleural effusions, CT of abd showing soft tissue mass engulfing IVC and aorta Echocardiogram showed severe LV systolic dysfunction, EF 15-20%, indeterminate diastolic function seen by Cardiology they recommend to continue gentle diuresis with Lasix 20 mg IV b.i.d. and low-dose valsartan 20 mg b.i.d., blood pressure remains stable cardio recommend to switch to Entresto Follow lytes, Mag, I/O Daily weights, low-salt diet Left bundle branch block EKG showing left bundle-branch block Patient asymptomatic: No chest pain/pressure, palpitations No prior EKGs on record for comparison, seen by Cardiology will eventually need ischemia workup. Full Code DVT Prophylaxis: On therapeutic Lovenox Pt will require continued inpatient hospitalization for treatment of pulmonary emboli and further workup for abdominal and pulmonary adenopathy waiting for paracentesis and expert consultation. Quality Stroke Does the patient have a stroke diagnosis?: No VTE Prior VTE?: No VTE Risk Level:: Medical - moderate - high VTE Device Contraindication: Treatment Not Indicated VTE Drug Contraindication: N/A - Med Ordered
[2023-07-14] VITALS (7 sets, daily range): BP systolic 98–134; BP diastolic 53–71; PULSE 78–92; RESP 16–18; TEMP 36.1–36.7; O2SAT 93–96
[2023-07-14 00:22] LABS: INTERNATIONAL NORM RATIO 1.1 (0.9-1.1); Prothrombin Time 13.9 SEC (11.1-13.3)
[2023-07-14 07:06] LABS: Anion Gap 20 (12-20); Blood Urea Nitrogen 16 mg/dL (9-16); Calcium 9.1 mg/dL (8.4-10.2); Carbon Dioxide 22 mmol/L (22-29); Chloride 97 mmol/L (96-108); Creatinine Clr Calc Pharmacy 56.9; Estimated Glomerular Filt Rate > 60; Glucose Random 89 mg/dL (60-115); Magnesium 1.8 mg/dL (1.6-2.6); Potassium 3.2 mmol/L (3.3-5.1); Sodium 136 mmol/L (135-145)
[2023-07-14 07:37] LABS: Carcinoembryonic Antigen < 1.73 ng/mL
[2023-07-14] MEDS: Potassium Chloride ER 20 MEQ TAB.ER.PRT 40 MEQ PO (09:07)
[2023-07-14] MEDS: Furosemide 20 MG/2 ML VIAL IVPUSH (09:07)
[2023-07-14] MEDS: Valsartan 40 MG TABLET 20 MG PO ×2 (09:07→21:25)
[2023-07-14] MEDS: Enoxaparin Sodium 80 MG/0.8 ML SYRINGE 75 MG SUBCUT ×2 (09:08→21:26)
[2023-07-14] MEDS: 0.9 % Sodium Chloride Flush 3 ML SYRINGE IVFLUSH ×3 (09:08→21:28)
--- NOTE | 2023-07-14 12:51 | PM.PNCARD ---
Subjective Subjective Date of Service: 07/14/23 Principal diagnosis: Cardiomyopathy, CHF, ascites Interval history: Patient noted to have significantly reduced LV ejection fraction by echocardiogram. She says abdominal distension seems improved and leg edema seems improved since diuresis. Although no accurate intake and output chart has been monitored. Blood pressure is on the softer side Review of Systems Constitutional: Reports weakness Eyes: Reports no additional eye complaints Cardiovascular: Reports Abdominal Distension and Reports leg edema Respiratory: Reports no additional respiratory complaints Gastrointestinal: Reports no additional gastrointestinal complaints Genitourinary: Reports no additional female genitourinary complaints Musculoskeletal: Reports no additional musculoskeletal complaints Reports weakness Physical Exam Vital Signs: Last Vital Signs Temp 97.3 F 07/14/23 11:25 Pulse 92 07/14/23 11:25 Resp 18 07/14/23 11:25 BP 106/60 07/14/23 11:25 Pulse Ox 96 07/14/23 11:25 O2 Del Method Room Air 07/14/23 11:25 BMI result Body Mass Index 30.1 Objective Labs and Meds 07/13/23 04:11 07/14/23 06:37 Lab results: Laboratory Results - last 24 hr 07/13/23 07/14/23 07/14/23 23:56 06:37 06:43 Hold Purple Top SEE NOTE PT 13.9 H INR 1.1 Sodium 136 Potassium 3.2 L Chloride 97 Carbon Dioxide 22 Anion Gap 20 BUN 16 Creatinine 0.84 Estim Creat Clear Calc 56.9 Estimated GFR > 60 Random Glucose 89 Calcium 9.1 Magnesium 1.8 Carcinoembryonic Ag < 1.73 07/14/23 23:56 Hold Purple Top SEE NOTE PT INR Sodium Potassium Chloride Carbon Dioxide Anion Gap BUN Creatinine Estim Creat Clear Calc Estimated GFR Random Glucose Calcium Magnesium Carcinoembryonic Ag Progress Note: A&P Assessment and plan (1) Cardiomyopathy: Status: Acute Assessment and Plan: Patient with severe cardiomyopathy question related to left bundle-branch block. She is multiple significant issues including multiple pulmonary emboli in the small vessels as well as large retroperitoneal mass and golfing the IVC and aorta. Etiology of this is unclear but appears to be malignant. Needs further workup from that perspective. Clinically does not appear to be in [place] heart failure. I would switch her to p.o. Lasix. Neurohormonal modulation with valsartan as well as metoprolol therapy can be started now. Depending on her prognosis from her intra-abdominal mass further treatment from cardiac perspective will be pursued although medical therapy will be pursued with neurohormonal modulation diuretic therapy. I do not think her significant ascites now as well as leg edema is related to heart failure but more likely IVC obstruction from the mass. Will follow with you Time Spent With Patient Time: Total time managing care of this patient today ____ minutes. Progress Note: Quality Stroke Does the patient have a stroke diagnosis?: No Procedures Date of Service Date of Service: 07/14/23
--- NOTE | 2023-07-14 15:58 | HO.PM.IMPN ---
Subjective Subjective Date of Service: 07/14/23 Interval History: Patient feels better, feels leg edema is improving, continue to complain of decreased appetite and mild nausea, no worsening of abdominal pain no other acute issues overnight. Review of Systems All other system reviewed and negative Physical Exam Vital Signs: Vital Signs: Last Vital Signs Temp 97.7 F 07/14/23 15:28 Pulse 83 07/14/23 15:28 Resp 18 07/14/23 15:28 BP 114/53 L 07/14/23 15:28 Pulse Ox 95 07/14/23 15:28 O2 Del Method Room Air 07/14/23 15:28 BMI result Body Mass Index 30.1 Const: Other: General awake alert x3, in no acute distress. Anicteric sclera Neck supple no JVD. CVS regular rate rhythm, Respiratory lungs clear , diminished , no respiratory distress, no wheeze, no rhonchi. Gastrointestinal abdomen distended mild discomfort both upper quadrants, bowel sounds audible, no guarding , no rigidity. 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.) Skin no rash Psych appropriate affect Objective Data Active Medications Acetaminophen (Acetaminophen 325 Mg Tablet) 650 mg PO Q6H PRN PRN Reason: Mild pain, fever, or headache Benzonatate (Benzonatate 100 Mg Capsule) 100 mg PO TID PRN PRN Reason: Cough Docusate Sodium (Docusate Sodium 100 Mg Capsule) 100 mg PO DAILY PRN PRN Reason: Constipation Enoxaparin Sodium (Enoxaparin Sodium 80 Mg/0.8 Ml Syringe) 75 mg SUBCUT Q12H [facility] Last Admin: 07/14/23 09:08 Dose: 75 mg Documented By: RITU Furosemide (Furosemide 20 Mg/2 Ml Vial) 20 mg IVPUSH DAILY THOMAS; Protocol Last Admin: 07/14/23 09:07 Dose: 20 mg Documented By: RITU Melatonin (Melatonin 3 Mg Tablet) 6 mg PO BEDTIME PRN PRN Reason: Insomnia Morphine Sulfate (Morphine Sulfate 4 Mg/Ml Cartridge) 4 mg IVPUSH Q4H PRN; Protocol PRN Reason: Pain, Severe (Pain Scale 7-10) Last Admin: 07/13/23 23:39 Dose: 4 mg Documented By: ZULMA Ondansetron HCl (Ondansetron Hcl 4 Mg/2 Ml Vial) 4 mg IVPUSH Q8H PRN PRN Reason: Nausea and Vomiting Sodium Chloride (0.9 % Sodium Chloride Flush 3 Ml Syringe) 3 ml IVFLUSH QSHIFT [facility] Last Admin: 07/14/23 09:08 Dose: 3 ml Documented By: RITU Valsartan (Valsartan 40 Mg Tablet) 20 mg PO BID [facility]; Protocol Last Admin: 07/14/23 09:07 Dose: 20 mg Documented By: RITU Labs 07/13/23 04:11 07/14/23 06:37 Labs: Laboratory Results - last 24 hr 07/13/23 07/14/23 07/14/23 23:56 06:37 06:43 Hold Purple Top SEE NOTE PT 13.9 H INR 1.1 Anion Gap 20 Estim Creat Clear Calc 56.9 Estimated GFR > 60 Random Glucose 89 Calcium 9.1 Magnesium 1.8 Carcinoembryonic Ag < 1.73 07/14/23 23:56 Hold Purple Top SEE NOTE PT INR Anion Gap Estim Creat Clear Calc Estimated GFR Random Glucose Calcium Magnesium Carcinoembryonic Ag Assessment and Plan (1) Cardiomyopathy: Status: Acute (2) Pulmonary emboli: Status: Acute (3) Pleural effusion: Status: Acute (4) Abdominal ascites: Status: Acute (5) Mass of soft tissue: Status: Acute Plan 73-year-old female with PMH significant for diet controlled type 2 diabetes not on home medications 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 Pulmonary emboli CTA of chest showed left lower lung pulmonary emboli Continue therapeutic Lovenox 80 mg subcu b.i.d., started 07/12/2023 venous duplex ultrasound of lower legs showed no DVT Intractable abdominal and lower back pain No worsening of pain, Likely secondary to retroperitoneal and peritoneal masses seen on CT Concerning for malignancy with metastasis Continue IV morphine for pain patient has multiple allergies to hydromorphone, codeine and Tylenol Seen by Dr. Duffy from Oncology he recommend CA 19-9, CA 125, CEA and stool guaiac PT consult for difficulty walking secondary to pain Ascites Likely secondary to abdominal masses paracentesis with possible mass biopsy and cytology will discuss with IR at a.m. s/p albumin Follow peritoneal fluid labs Acute CHF with reduced EF Lower leg edema is improving, CT of abd showing soft tissue mass engulfing IVC and aorta, likely contributing to leg edema Echocardiogram showed severe LV systolic dysfunction, EF 15-20%, indeterminate diastolic function, does not appear to be in [place] CHF seen by Cardiology they recommend to transition IV Lasix to by mouth, will continue low-dose valsartan 20 mg b.i.d., blood pressure remains stable Will add beta-mauricio and transition to Entresto if blood pressure allows Follow lytes, Mag, I/O Daily weights, low-salt diet Mild acute hypokalemia due to diuretics will replace and follow labs Left bundle branch block EKG showing left bundle-branch block Patient asymptomatic: No chest pain/pressure, palpitations No prior EKGs on record for comparison, seen by Cardiology will eventually need ischemia workup. Diabetes mellitus not on home medication hemoglobin A1c 7.1 Will follow point of care add insulin sliding scale Full Code DVT Prophylaxis: On therapeutic Lovenox Pt will require continued inpatient hospitalization for treatment of pulmonary emboli and further workup for abdominal and pulmonary adenopathy waiting for paracentesis and expert consultation. Quality Stroke Does the patient have a stroke diagnosis?: No VTE Prior VTE?: No VTE Risk Level:: Medical - moderate - high VTE Device Contraindication: Treatment Not Indicated VTE Drug Contraindication: N/A - Med Ordered
[2023-07-14 16:26] LABS: Glucose, Whole Blood 111 mg/dL (60-115)
[2023-07-14 20:37] LABS: Glucose, Whole Blood 109 mg/dL (60-115)
[2023-07-14] MEDS: Morphine Sulfate 4 MG/ML CARTRIDGE IVPUSH (21:25)
[2023-07-15] VITALS (7 sets, daily range): BP systolic 84–121; BP diastolic 51–80; PULSE 82–89; RESP 17–19; TEMP 36–36.7; O2SAT 93–95
[2023-07-15] MEDS: ondansetron HCL 4 MG/2 ML VIAL IVPUSH (03:53)
[2023-07-15 06:36] LABS: Hematocrit 31.4 % (37.0-47.0); Hemoglobin 10.3 g/dl (12.0-16.0); Mean Corpuscular HGB Conc 32.8 g/dl (31.0-35.0); Mean Corpuscular Hemoglobin 27.2 pg (27.0-33.0); Mean Corpuscular Volume 83.1 fL (80.0-98.0); Mean Platelet Volume 9.9 fL (9.4-12.3); Platelet Count 418 X10*3/uL (160-400); Red Blood Count 3.78 X10*6/uL (4.20-5.50); Red Cell Distribution Width 14.9 % (11.0-16.0); White Blood Count 11.3 X10*3/uL (4.8-10.8)
[2023-07-15 06:58] LABS: Anion Gap 19 (12-20); Blood Urea Nitrogen 22 mg/dL (9-16); Calcium 8.5 mg/dL (8.4-10.2); Carbon Dioxide 22 mmol/L (22-29); Chloride 96 mmol/L (96-108); Creatinine Clr Calc Pharmacy 43.4; Estimated Glomerular Filt Rate 48; Glucose Random 110 mg/dL (60-115); Magnesium 1.6 mg/dL (1.6-2.6); Potassium 3.6 mmol/L (3.3-5.1); Sodium 133 mmol/L (135-145)
[2023-07-15 08:21] LABS: Glucose, Whole Blood 131 mg/dL (60-115)
[2023-07-15] MEDS: 0.9 % Sodium Chloride Flush 3 ML SYRINGE IVFLUSH ×3 (09:51→20:53)
[2023-07-15 10:38] LABS: Carbohydrate Antigen 19-9 8 U/mL (<34)
--- NOTE | 2023-07-15 10:46 | MHC.CM.PN ---
EMR REVIEWED, PER MULTIDISCIPLINARY ROUNDS PT TO HAVE PARECENTESIS TODAY, NO PLAN FOR DC AT THIS TIME HOWEVER ANTIC PT WILL RETURN HOME W/FAMILY SUPPORT WHEN MEDICALLY CLEARED FOR DC.
[2023-07-15 11:49] LABS: CA-125 894 U/mL (<35)
[2023-07-15] MEDS: Lidocaine HCl 1 % MPF 5 ML VIAL SUBCUT (12:05)
[2023-07-15 12:20] LABS: Glucose, Whole Blood 137 mg/dL (60-115)
[2023-07-15 12:21] LABS: RBC Peritoneal Fluid 0.009 X10*6/uL; WBC Peritoneal Fluid 7.716 X10*3/uL
[2023-07-15 12:54] LABS: BF Shift QC OK YES; Lymphocyte Peritoneal Fl 61 %; Man Diluent Bkgrd OK YES; Monocytes Peritoneal Fl 16 %; Neutrophils Peritoneal Fluid 7 %; Other Peritioneal Fl 16 %
--- NOTE | 2023-07-15 14:35 | HO.PM.IMPN ---
Subjective Subjective Date of Service: 07/15/23 Interval History: Complaining of persistent abdominal discomfort but not worse, feels bloated after eating, minimal by mouth intake, no fevers no chills, no shortness of breath at rest, no other acute issues, scheduled for paracentesis this morning, a.m. dose of Lovenox held, no acute events overnight. Review of Systems All other system reviewed and negative. Physical Exam Vital Signs: Vital Signs: Last Vital Signs Temp 97.7 F 07/15/23 12:00 Pulse 87 07/15/23 12:00 Resp 19 07/15/23 12:00 BP 101/54 L 07/15/23 12:00 Pulse Ox 95 07/15/23 12:00 O2 Del Method Room Air 07/15/23 12:00 BMI result Body Mass Index 30.1 Const: Other: General awake alert x3, in no acute distress. Anicteric sclera Neck supple no JVD. CVS regular rate rhythm, Respiratory lungs clear , diminished , no respiratory distress, no wheeze, no rhonchi. Gastrointestinal abdomen distended mild discomfort both upper quadrants, bowel sounds audible, no guarding , no rigidity. 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.) Skin no rash Psych appropriate affect Objective Data Active Medications Acetaminophen (Acetaminophen 325 Mg Tablet) 650 mg PO Q6H PRN PRN Reason: Mild pain, fever, or headache Benzonatate (Benzonatate 100 Mg Capsule) 100 mg PO TID PRN PRN Reason: Cough Docusate Sodium (Docusate Sodium 100 Mg Capsule) 100 mg PO DAILY PRN PRN Reason: Constipation Enoxaparin Sodium (Enoxaparin Sodium 80 Mg/0.8 Ml Syringe) 75 mg SUBCUT Q12H [facility] Last Admin: 07/15/23 09:25 Dose: Not Given Documented By: JEFF Non-Admin Reason: Physician Held Med Furosemide (Furosemide 20 Mg Tablet) 20 mg PO DAILY [facility]; Protocol Last Admin: 07/15/23 09:50 Dose: Not Given Documented By: RILEY Non-Admin Reason: Low BP Glucose (Glucose Gel 15 Gm Gel..Gram.) 15 gm PO Q15M PRN; Protocol PRN Reason: per Hypoglycemia Standing Ord. Dextrose (D10) 250 mls @ 750 mls/hr IV Q15M PRN; Protocol PRN Reason: per Hypoglycemia Standing Ord. Insulin Human Lispro (Insulin Lispro 100 Unit/Ml 3 Ml Vial) 0 unit SUBCUT QIDACHS [facility]; Protocol Last Admin: 07/15/23 12:26 Dose: Not Given Documented By: JEFF Non-Admin Reason: poc= 137 Melatonin (Melatonin 3 Mg Tablet) 6 mg PO BEDTIME PRN PRN Reason: Insomnia Morphine Sulfate (Morphine Sulfate 4 Mg/Ml Cartridge) 4 mg IVPUSH Q4H PRN; Protocol PRN Reason: Pain, Severe (Pain Scale 7-10) Last Admin: 07/14/23 21:25 Dose: 4 mg Documented By: NEO Ondansetron HCl (Ondansetron Hcl 4 Mg/2 Ml Vial) 4 mg IVPUSH Q8H PRN PRN Reason: Nausea and Vomiting Last Admin: 07/15/23 03:53 Dose: 4 mg Documented By: EVA Sodium Chloride (0.9 % Sodium Chloride Flush 3 Ml [facility]) [facility] Last Admin: 07/15/23 09:51 Dose: 3 ml Documented By: RILEY Valsartan (Valsartan 40 Mg Tablet) 20 mg PO BID [facility]; Protocol Last Admin: 07/15/23 09:51 Dose: Not Given Documented By: RILEY Non-Admin Reason: Low BP Labs 07/15/23 06:03 07/15/23 06:03 Labs: Laboratory Results - last 24 hr 07/14/23 07/14/23 07/14/23 06:37 16:21 20:32 MCV MCH MCHC RDW Plt Count MPV Absolute Nucleated RBC Nucleated RBC % (auto) Anion Gap Estim Creat Clear Calc Estimated GFR POC Glucose 111 109 Random Glucose Calcium Magnesium CA 19-9 Antigen 8 CA 125 Antigen 894 H Peritoneal WBC Peritoneal RBC Periton Neutrophils Periton Lymphocytes Peritoneal Monocytes Peritoneal Other Cells 07/15/23 07/15/23 07/15/23 06:03 08:15 11:50 MCV 83.1 MCH 27.2 MCHC 32.8 RDW 14.9 Plt Count 418 H MPV 9.9 Absolute Nucleated RBC 0.000 Nucleated RBC % (auto) 0.0 Anion Gap 19 Estim Creat Clear Calc 43.4 Estimated GFR 48 POC Glucose 131 H Random Glucose 110 Calcium 8.5 D Magnesium 1.6 CA 19-9 Antigen CA 125 Antigen Peritoneal WBC 7.716 Peritoneal RBC 0.009 Periton Neutrophils 7 Periton Lymphocytes 61 Peritoneal Monocytes 16 Peritoneal Other Cells 16 07/15/23 12:14 MCV MCH MCHC RDW Plt Count MPV Absolute Nucleated RBC Nucleated RBC % (auto) Anion Gap Estim Creat Clear Calc Estimated GFR POC Glucose 137 H Random Glucose Calcium Magnesium CA 19-9 Antigen CA 125 Antigen Peritoneal WBC Peritoneal RBC Periton Neutrophils Periton Lymphocytes Peritoneal Monocytes Peritoneal Other Cells Microbiology Microbiology Results: Microbiology 07/15/23 11:50 Gram Stain - Final Ascites Fluid Assessment and Plan (1) Cardiomyopathy: Status: Acute (2) Pulmonary emboli: Status: Acute (3) Pleural effusion: Status: Acute (4) Abdominal ascites: Status: Acute (5) Mass of soft tissue: Status: Acute Plan 73-year-old female with PMH significant for diet controlled type 2 diabetes not on home medications 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 Pulmonary emboli No shortness a breath at rest, no hypoxia CTA of chest showed left lower lung pulmonary emboli Continue therapeutic Lovenox 80 mg subcu b.i.d., started 07/12/2023 venous duplex ultrasound of lower legs showed no DVT Intractable abdominal and lower back pain No worsening of pain, Likely secondary to retroperitoneal and peritoneal masses seen on CT Concerning for malignancy with metastasis Continue IV morphine for pain patient has multiple allergies to hydromorphone, codeine and Tylenol Seen by Dr. Duffy from Oncology CA 19-9, and CEA are within normal range, noted to have elevated CA 125 of 894, likely ovarian source PT recommend short-term rehab that would be safest,or home with services if patient declines. Ascites Likely secondary to abdominal masses paracentesis done this morning cytology and peritoneal fluid studies pending s/p albumin If cytology negative will consider further testing Acute CHF with reduced EF Lower leg edema is improving, CT of abd showing soft tissue mass engulfing IVC and aorta, likely contributing to leg edema Echocardiogram showed severe LV systolic dysfunction, EF 15-20%, indeterminate diastolic function, does not appear to be in [place] CHF seen by Cardiology treated with IV Lasix and valsartan now noted to have soft blood pressures will discontinue Lasix and valsartan, lower extremity edema mostly related to IVC compression t Follow clinical Mild acute hypokalemia Mild acute hyponatremia likely due to diuretics will follow labs Left bundle branch block EKG showing left bundle-branch block Patient asymptomatic: No chest pain/pressure, palpitations No prior EKGs on record for comparison, seen by Cardiology will eventually need ischemia workup. Diabetes mellitus not on home medication hemoglobin A1c 7.1 Stable blood sugars, follow point of care and insulin sliding scale Full Code DVT Prophylaxis: On therapeutic Lovenox Pt will require continued inpatient hospitalization for treatment of pulmonary emboli and further workup for abdominal and pulmonary adenopathy. Quality Stroke Does the patient have a stroke diagnosis?: No VTE Prior VTE?: No VTE Risk Level:: Medical - moderate - high VTE Device Contraindication: Treatment Not Indicated VTE Drug Contraindication: N/A - Med Ordered
--- NOTE | 2023-07-15 15:25 | PM.HEMONCPN ---
Medical Summary - Medical Summary Date of Service: 07/15/23 Chief complaint: abdominal pain Primary Care Provider: None Physician Interval History Interval history: Corazon Pagan is a 73 year old female with no PCP presenting with abdominal pain, mass, ascites and weakness. Laboratory data shows anabdominal mass and extensive adenopathy. The CA 19.9and CEA are wnl but the CA 125 is elevated to 894. We should proceed to paracentesis for cytology and have visualizer evaluate for ovarian or primary peritoneal carcinoma.If either of these are present she will need referral to [facility]. Review of Systems - Neurologic Reports system reviewed and no additional complaints, except as documented, Reports weakness, Denies syncope PMFSH Medical History: Medical History (Last Reviewed 07/15/23 @ 11:49 by Sailaja Alvarado PT) Diet-controlled type 2 diabetes mellitus Social History: Social History (Last Reviewed 07/13/23 @ 14:11 by Cj Tariq MD) Living Situation History: Household Members: None Housing: Apartment Do you presently have visiting nurse or other home services: No Tobacco History: Patient Tobacco Use Status: Never used Tobacco Second Hand Smoke Exposure: No Occupation Assessmet: service: No Home Medications and Allergies Current Medications: Current Medications Acetaminophen (Acetaminophen 325 Mg Tablet) 650 mg PO Q6H PRN PRN Reason: Mild pain, fever, or headache Benzonatate (Benzonatate 100 Mg Capsule) 100 mg PO TID PRN PRN Reason: Cough Docusate Sodium (Docusate Sodium 100 Mg Capsule) 100 mg PO DAILY PRN PRN Reason: Constipation Enoxaparin Sodium (Enoxaparin Sodium 80 Mg/0.8 Ml Syringe) 75 mg SUBCUT Q12H [facility] Last Admin: 07/15/23 09:25 Dose: Not Given Glucose (Glucose Gel 15 Gm Gel..Gram.) 15 gm PO Q15M PRN; Protocol PRN Reason: per Hypoglycemia Standing Ord. Dextrose (D10) 250 mls @ 750 mls/hr IV Q15M PRN; Protocol PRN Reason: per Hypoglycemia Standing Ord. Insulin Human Lispro (Insulin Lispro 100 Unit/Ml 3 Ml Vial) 0 unit SUBCUT QIDACHS [facility]; Protocol Last Admin: 07/15/23 12:26 Dose: Not Given Melatonin (Melatonin 3 Mg Tablet) 6 mg PO BEDTIME PRN PRN Reason: Insomnia Morphine Sulfate (Morphine Sulfate 4 Mg/Ml Cartridge) 4 mg IVPUSH Q4H PRN; Protocol PRN Reason: Pain, Severe (Pain Scale 7-10) Last Admin: 07/14/23 21:25 Dose: 4 mg Ondansetron HCl (Ondansetron Hcl 4 Mg/2 Ml Vial) 4 mg IVPUSH Q8H PRN PRN Reason: Nausea and Vomiting Last Admin: 07/15/23 03:53 Dose: 4 mg Sodium Chloride (0.9 % Sodium Chloride Flush 3 Ml Syringe) [facility] Last Admin: 07/15/23 09:51 Dose: 3 ml Home Medications ?Medication ?Instructions ?Recorded ?Confirmed ?Type No Known Home Meds 07/12/23 07/12/23 History Allergies Allergy/AdvReac Type Severity Reaction Status Date / Time acetaminophen [From Tylenol] Allergy Difficulty Verified 07/13/23 00:37 Breathing hydromorphone Allergy Difficulty Verified 07/13/23 00:38 Breathing lactose Allergy Gastrointestinal Verified 07/12/23 14:28 Upset codeine AdvReac Intermediate Difficulty Verified 07/13/23 00:38 Breathing Exam Vital signs: Vital Signs Temp 97.7 F 07/15/23 12:00 Pulse 87 07/15/23 12:00 Resp 19 07/15/23 12:00 BP 101/54 L 07/15/23 12:00 Pulse Ox 95 07/15/23 12:00 O2 Del Method Room Air 07/15/23 12:00 Intake & Output 07/14/23 07/15/23 07/15/23 18:59 06:59 18:59 Intake Total 240 / 240 0 / 0 Output Total 2 / 2 Balance 240 / 238 -2 / 238 0 / 0 Urine Output (Average ml/kg/hr) 0.00 0.00 Intake: Intake, Oral Amount 240 / 240 0 / 0 Output: Output, Urine Amount 2 / 2 Other: Dinner % Eaten 0% Number of Unmeasured Voids 2 Urine Bathroom Bathroom Urine Color Yellow Yellow Last Bowel Movement 07/11/23 Weight 77.111 kg BMI result Body Mass Index 30.1 - Constitutional Present: no acute distress - Routine HEENT Exam Head: Present: atraumatic, normocephalic - Routine Respiratory Exam Present: decreased breath sounds - Routine Cardiovascular Exam Cardiovascular: Present: RRR - Routine Abdominal Exam Present: diminished bowel sounds, distended, hypoactive bowel sounds, mass, soft, tenderness - Routine Extremities Exam Present: pedal edema, tenderness - Routine Neurological Exam Present: alert, oriented X3 Data - Labs CBC & Chem 7: 07/15/23 06:03 07/15/23 06:03 Labs: Laboratory Last Values WBC 11.3 X10*3/uL (4.8-10.8) H 07/15/23 06:03 RBC 3.78 X10*6/uL (4.20-5.50) L 07/15/23 06:03 Hgb 10.3 g/dl (12.0-16.0) L 07/15/23 06:03 Hct 31.4 % (37.0-47.0) L 07/15/23 06:03 MCV 83.1 fL (80.0-98.0) 07/15/23 06:03 MCH 27.2 pg (27.0-33.0) 07/15/23 06:03 MCHC 32.8 g/dl (31.0-35.0) 07/15/23 06:03 RDW 14.9 % (11.0-16.0) 07/15/23 06:03 Plt Count 418 X10*3/uL (160-400) H 07/15/23 06:03 MPV 9.9 fL (9.4-12.3) 07/15/23 06:03 Immature Gran % (Auto) 0.6 % (0.0-0.4) H 07/12/23 14:16 Neut % (Auto) 80.3 % (45-73) H 07/12/23 14:16 Lymph % (Auto) 11.8 % (20-40) L 07/12/23 14:16 [place] % (Auto) 6.7 % (2-11) 07/12/23 14:16 Eos % (Auto) 0.1 % (0-4) 07/12/23 14:16 Baso % (Auto) 0.5 % (0-2) 07/12/23 14:16 Lymph # (Auto) 1.2 X10*3/uL (1.2-4.9) 07/12/23 14:16 [place] # (Auto) 0.7 X10*3/uL (0.1-1.2) 07/12/23 14:16 Eos # (Auto) 0.0 X10*3/uL (0.0-0.4) 07/12/23 14:16 Baso # (Auto) 0.1 X10*3/uL (0.0-0.2) 07/12/23 14:16 Abs Immat Gran (auto) 0.06 X10*3/uL (0.00-0.03) H 07/12/23 14:16 Absolute Neuts (auto) 7.8 x10*3/uL (2.0-8.3) 07/12/23 14:16 Absolute Nucleated RBC 0.000 X10*3/uL (0.0-0.012) 07/15/23 06:03 Nucleated RBC % (auto) 0.0 /100WBC (0.0-0.2) 07/15/23 06:03 ESR 44 MM/HR (0-20) H 07/12/23 16:43 Hold Purple Top SEE NOTE 07/14/23 23:56 PT 13.9 SEC (11.1-13.3) H 07/13/23 23:56 INR 1.1 (0.9-1.1) 07/13/23 23:56 APTT 36.5 SEC (26.0-36.8) 07/12/23 22:56 VBG pH 7.44 (7.32-7.43) H 07/12/23 18:02 VBG pCO2 38 mmHg 07/12/23 18:02 VBG pO2 45 mmHg 07/12/23 18:02 VBG HCO3 26 mmol/L (22-26) 07/12/23 18:02 VBG O2 Saturation 71.0 % 07/12/23 18:02 VBG Base Excess 2.8 mmol/L 07/12/23 18:02 Sodium 133 mmol/L (135-145) L 07/15/23 06:03 Potassium 3.6 mmol/L (3.3-5.1) 07/15/23 06:03 Chloride 96 mmol/L (96-108) 07/15/23 06:03 Carbon Dioxide 22 mmol/L (22-29) 07/15/23 06:03 Anion Gap 19 (12-20) 07/15/23 06:03 BUN 22 mg/dL (9-16) H 07/15/23 06:03 Creatinine 1.10 mg/dL (0.5-1.4) 07/15/23 06:03 Estim Creat Clear Calc 43.4 07/15/23 06:03 Estimated GFR 48 07/15/23 06:03 POC Glucose 137 mg/dL (60-115) H 07/15/23 12:14 Random Glucose 110 mg/dL (60-115) 07/15/23 06:03 Estimat Average Glucose 157 mg/dL 07/12/23 17:59 Hemoglobin A1c % 7.1 % (<6.0) H 07/12/23 17:59 Lactic Acid 1.0 mmol/L (0.5-2.0) 07/12/23 17:59 Calcium 8.5 mg/dL (8.4-10.2) D 07/15/23 06:03 Magnesium 1.6 mg/dL (1.6-2.6) 07/15/23 06:03 Total Bilirubin 0.5 mg/dL (0.0-1.0) 07/12/23 14:16 AST 35 U/L (5-31) H 07/12/23 14:16 ALT < 5 U/L (0-31) 07/12/23 14:16 Alkaline Phosphatase 71 U/L (39-117) 07/12/23 14:16 Troponin I High Sens 17.0 ng/L (<3.5-17.0) 07/12/23 14:16 C-Reactive Protein 6.11 mg/dL (< or = 0.50) H 07/12/23 14:16 B-Natriuretic Peptide 857 pg/mL (<100) H 07/12/23 14:16 Total Protein 6.1 g/dL (6.5-8.0) L 07/12/23 14:16 Albumin 3.2 g/dL (3.5-5.0) L 07/12/23 14:16 Triglycerides 129 mg/dL (<150) 07/12/23 14:16 Cholesterol 184 mg/dL (<200) 07/12/23 14:16 LDL Cholesterol, Calc 126 mg/dL (<100) H 07/12/23 14:16 HDL Cholesterol 33 mg/dL (>40) L 07/12/23 14:16 Lipase 9 U/L (8-78) 07/12/23 14:16 Carcinoembryonic Ag < 1.73 ng/mL 07/14/23 06:37 CA 19-9 Antigen 8 U/mL (<34) 07/14/23 06:37 CA 125 Antigen 894 U/mL (<35) H 07/14/23 06:37 Beta-Hydroxybutyrate 2.93 mmol/L (0.02-0.27) H 07/12/23 17:59 Peritoneal WBC 7.716 X10*3/uL 07/15/23 11:50 Peritoneal RBC 0.009 X10*6/uL 07/15/23 11:50 Periton Neutrophils 7 % 07/15/23 11:50 Periton Lymphocytes 61 % 07/15/23 11:50 Peritoneal Monocytes 16 % 07/15/23 11:50 Peritoneal Other Cells 16 % 07/15/23 11:50 Urine Opiates Screen Not Detected (Not Detect) 07/12/23 21:08 Ur Buprenorphine Scrn Not Detected ng/mL (Not Detect) 07/12/23 21:08 Ur Oxycodone Screen Not Detected ng/mL (Not Detect) 07/12/23 21:08 Urine Methadone Screen Not Detected ng/mL (Not Detect) 07/12/23 21:08 Urine Fentanyl Screen Not Detected (Not Detect) 07/12/23 21:08 Ur Barbiturates Screen Not Detected (Not Detect) 07/12/23 21:08 Ur Phencyclidine Scrn Not Detected (Not Detect) 07/12/23 21:08 Ur Amphetamines Screen Not Detected (Not Detect) 07/12/23 21:08 U Benzodiazepines Scrn Not Detected (Not Detect) 07/12/23 21:08 Urine Cocaine Screen Not Detected (Not Detect) 07/12/23 21:08 U Marijuana (THC) Screen Not Detected (Not Detect) 07/12/23 21:08 Ethyl Alcohol < 10 mg/dL 07/12/23 14:16 Influenza Type A (PCR) NEGATIVE (Negative) 07/12/23 14:16 Influenza Type B (PCR) NEGATIVE (Negative) 07/12/23 14:16 RSV RNA Qual (PCR) NEGATIVE (Negative) 07/12/23 14:16 SARS-CoV-2 RNA (RT-PCR) NEGATIVE (Negative) 07/12/23 14:16 - Imaging Radiologist's impression: ITS Impressions Abdomen/Pelvis CT 07/12/23 17:14 IMPRESSION: 1. Coalescence of bulky soft tissue retroperitoneal mass engulfing the aorta and IVC measures 9.6 x 5.1 cm, multiple large mesenteric lymph nodes and soft tissue opacities concerning for mesenteric seeding, large abdominal central mass 11.5 x 8.5 cm, which could be a coalescence of mesenteric lymph nodes or peritoneal mass such neoplasm as GIST tumor among others. 2. Large amount of ascites. Ultrasound-guided peritoneal paracentesis could be utilized for oncology analysis. 3. Bilateral pleural effusion and atelectasis at lung bases. 4. Atrophic pancreas. Chest CTA 07/12/23 17:14 IMPRESSION: 1. No large central emboli, there are very small peripheral nonocclusive filling defects in peripheral branches suggesting small emboli found in peripheral branches to left lower lobe, Carreno images.. 2. Bilateral pleural effusions right more than left. 3. Compression atelectasis at lung bases bilaterally. 4. Enlarged mediastinal lymph nodes concerning for possible metastasis.. VTE: positive. (Referring physician staff is being called, by physician staff assistance, to be alerted of the above critical findings and recommendations.) 07/12/2023 8:01 PM EM Venous Duplex 07/12/23 22:00 IMPRESSION: No DVT demonstrated in the bilateral lower extremities. Assessment and Plan Patient Active problem list reviewed?: Yes (1) Mass of soft tissue Status: Acute Assessment and plan: Recommend [facility] involvement and paracentesis for cytology in view of the elevated CA 125. - Time Spent With Patient Time Spent with Patient (in minutes): 15
[2023-07-15 16:46] LABS: Glucose, Whole Blood 129 mg/dL (60-115)
--- NOTE | 2023-07-15 17:14 | HO.WOUND ---
Wound Consult: Initial 73yr old?F admitted to [facility] on 07/12/23 - See progress notes and H&P for detailed history.? Wound consult placed for Left Leg wound.? Patient agreeable to assessment and photo documentation.? Patient reports she believes this is from repetative injury getting into her car and things within her home. She reports the erythema and swelling are significantly better. She refused dressing that this time - education provided on the benefits but she refused. Left Medial Chin Etiology: ??Traumatic abrasion Wound Bed: dried adherent scab Drainage / Odor: None Edges: ? Irregular Marifer wound: pink erythema noted - ? No Induration, Fluctuance or Warmth noted Pain: denies feeling in legs Goals of Treatment: ? Foam dressing to allow for moist wound healing - pt refused dressing. Recommendations: 1. Left Lower Leg [place]alante - Cleanse with NS moist gauze, pat dry. Cover with foam dressing change every 3 days. Re-consult wound care Nurse for wound deterioration or wound changes.
[2023-07-15 20:32] LABS: Glucose, Whole Blood 148 mg/dL (60-115)
[2023-07-15] MEDS: Morphine Sulfate 4 MG/ML CARTRIDGE IVPUSH (20:50)
[2023-07-15] MEDS: Enoxaparin Sodium 80 MG/0.8 ML SYRINGE 75 MG SUBCUT (20:52)
[2023-07-16] VITALS: BP 81/50; PULSE 81; RESP 18; TEMP 36.6; O2SAT 91
[2023-07-16 00:15] VITALS: BP 113/56
[2023-07-16 03:07] VITALS: BP 95/55; PULSE 81; RESP 18; TEMP 36; O2SAT 92
[2023-07-16 08:00] VITALS: BP 115/58; PULSE 80; RESP 18; TEMP 36.4; O2SAT 96
[2023-07-16 08:17] LABS: Glucose, Whole Blood 150 mg/dL (60-115)
[2023-07-16] MEDS: 0.9 % Sodium Chloride Flush 3 ML SYRINGE IVFLUSH (08:28)
[2023-07-16] MEDS: Enoxaparin Sodium 80 MG/0.8 ML SYRINGE 75 MG SUBCUT (08:28)
[2023-07-16 11:58] LABS: Glucose, Whole Blood 151 mg/dL (60-115)
[2023-07-16 12:00] VITALS: BP 114/63; PULSE 76; RESP 18; TEMP 36.1; O2SAT 94
--- NOTE | 2023-07-16 12:44 | P.F2F_ITS ---
Service Date Service Date: 07/16/23 Encounter Date of encounter: 07/16/23 Reasons for Services Signs and symptoms assessed: Abdominal pain/ascites, lower extremity swelling, difficulty in ambulation. Reason for halfway: diabetic teaching, medication management, medication treatment, teach disease management and GI/ assessment Reason for physical therapy: home safety and mobility Homebound: Leaving the home is medically contraindicated at this time without the asist of a device and/or another person due th the listed conditions above and below. Reason homebound: pain with transfers and weakness related to hospital stay Certification: Based on the above findings, I certify that this patient is confined to the home and needs intermittent halfway care, physical therapy and/or speech therapy, or continues to need occupational therapy. The patient is under my care, and I have initiated the establishment of the plan of care. The patient will be followed by a physician who will periodically review the plan of care. Time Spent With Patient Time: Total time managing care of this patient today ____ minutes.
--- NOTE | 2023-07-16 13:37 | MHC.CM.PN ---
Addendum entered by Karolina Coffman 07/16/23 14:29: family is not able to transport pt home, a Lyft ride has been arranged. Original Note: Second IMM, pt has been medically cleared for DC, she will go home today via family transport, and have home care services from [facility], Dr. Duffy will be her PCP.
--- NOTE | 2023-07-16 14:33 | P.DS_ITS ---
DS: Providers Provider Date of Service: 07/16/23 Date of admission: 07/12/23 22:14 Primary care physician: None Physician Consults: 07/12/23 22:21 Consult to Cardiology Routine Consulting Provider: [facility] Reason for consultation: New LBBB, CT w/ mass engulfing aorta and IVC, elevated BNP Consult to Hematology / Oncology Routine Consulting Provider: Prem Duffy Reason for consultation: Peritoneal and retroperitoneal masses suspicious for malignancy 07/14/23 19:04 Consult to Wound Care Routine Reason for consultation: open area to left leg DS: Diagnosis Discharge Diagnosis (1) Cardiomyopathy: Status: Acute (2) Pulmonary emboli: Status: Acute (3) Pleural effusion: Status: Acute (4) Abdominal ascites: Status: Acute (5) Mass of soft tissue: Status: Acute DS: Summary Hospital Course Hospital Course: History of presenting illness: Date of Service: 07/12/23 Attending physician on admission: Sherri Pittman Chief Complaint: Lower back pain Pt is a 73-year-old female with PMH significant for diet controlled type 2 diabetes not on home medications 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 Patient regularly sees a chiropractor for chronic lower back pain, and reports symptoms began last November when she began experiencing lower back pain after one of her chiropractic adjustments. Has experienced chronic back pain since then which has been constantly present, though waxing and waning in intensity. Yesterday pt's chiropractic session left her in excruciating pain and has had difficulty ambulating since then. Patient describes her pain as beginning in her back and wrapping around her upper abdomen, worse in the LUQ and RUQ. Reports increased lower leg edema times 1-2 months, increased shortness of breath and difficulty breathing especially on exertion. He is only able to walk few feet without having to stop to catch her breath. Noticed abdominal swelling and distention only a few days ago. States she has not been eating or drinking much lately and has had increasing fatigue especially in the past few months. Denies fever, chills, nausea, vomiting. No diarrhea. Denies chest pain/pressure, palpitations. In the ED pt was Labs were significant for AST 35, C-reactive protein 6.11, BNP 857, protein 6.1, albumin 3.2, beta hydroxybutyrate 2.65. Tested negative for flu, RSV, and COVID. CT?of abdomen and pelvis found bulky soft tissue retroperitoneal mass engulfing the aorta and IVC measuring 9.6 x 5.1 cm, multiple large mesenteric lymph nodes, soft tissue opacities, and large abdominal central mass measuring 11.5 x 8.5 cm. Also found a large amount of ascites and bilateral pleural effusions and atelectasis at lung bases. CTA of chest found no large central emboli but evidence of small emboli in peripheral branches of left lower lobe. Also found bilateral pleural effusions with right more than left, compression atelectasis at lung bases bilaterally, and enlarged mediastinal lymph nodes concerning for possible metastasis. EKG demonstrated sinus rhythm with PACs and left bundle branch block with QTc prolonged at [address] elevations in V1, V2, and V3. No prior EKGs for comparison. Pt was treated with furosemide 20 mg IV magnesium sulfate 1 g. Pt will be admitted to the hospital for treatment and further evaluation of intractable abdominal and back pain, ascites, and lower leg edema in the setting of multiple abdominal masses suspicious for malignancy, as well as left lower lobe pulmonary emboli. 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 Pulmonary emboli due to shortness of breath with activity a CTA of chest was obtained that showed left lower lung pulmonary emboli, venous duplex ultrasound of lower leg showed no DVT, due to underlying retroperitoneal and peritoneal masses patient placed on Lovenox subQ 75 mg b.i.d. , at present patient has no hypoxia ,denies shortness of breath at rest, patient is being discharged home with VNA services, and has received teachings to administer Lovenox. In regard to Abdominal and lower back pain, patient treated with IV morphine CT abdomen and pelvis showed ascites, retroperitoneal and peritoneal masses concerning for malignancy with metastasis, CA 19-9, and CEA are within normal range, noted to have elevated CA 125 of 894, underwent paracentesis cytology is pending, patient seen by Dr. Duffy from Oncology he recommend outpatient [facility] OBGYN Oncology appointment for possible ovarian or primary peritoneal carcinoma, Dr. Duffy will follow patient closely as outpa tient and will be patient's PCP, patient is being discharged home on by mouth morphine since she have multiple allergies to other analgesics including hydromorphone, Tylenol and codeine. As per patient codeine causes abdominal pain recommended to try oxycodone but patient adamantly refused. Acute CHF with reduced EF patient noted to have significant bilateral lower extremity edema,Echocardiogram showed severe LV systolic dysfunction, EF 15-20%, indeterminate diastolic function, patient treated with IV Lasix and losartan, subsequently noted to have soft blood pressures, has no PND, no orthopnea, leg edema improved, therefore diuretics discontinued, most likely soft tissue mass on CT scan of abdomen showing engulfing IVC and aorta likely contributing to leg edema. Mild acute hypokalemia and hyponatremia, potassium normalized with repletion sodium stable at 133 Left bundle branch block, patient denied chest pain or palpitations, no prior EKGs for comparison, seen by Cardiology they recommend outpatient ischemic workup. Diabetes mellitus not on home medication hemoglobin A1c 7.1 recommend to follow diabetic diet. Patient not willing to take insulin. Time Attestation Discharge Coordination Time (in mins): 38 Quality: Safe Use of Opioids Does Pt have an Active Cancer Diagnosis on the Problem List?: No Quality: Stroke Does the patient have a stroke diagnosis?: No Physical Exam Vital Signs: Vital Signs: Last Vital Signs Temp 97.0 F 07/16/23 12:00 Pulse 76 07/16/23 12:00 Resp 18 07/16/23 12:00 BP 114/63 07/16/23 12:00 Pulse Ox 94 07/16/23 12:00 O2 Del Method Room Air 07/16/23 12:00 BMI result Body Mass Index 30.1 Const: Other: General awake alert x3, in no acute distress. Anicteric sclera Neck supple no JVD. CVS regular rate rhythm, Respiratory lungs clear , diminished , no respiratory distress, no wheeze, no rhonchi. Gastrointestinal abdomen distended mild discomfort both upper quadrants, bowel sounds audible, no guarding , no rigidity. 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 Body Fluid Culture - Preliminary No growth to date. Discharge Plan Discharge Anticipated Discharge Date/Time: 07/16/23 12:05 Patient Disposition: Home Health Service Discharge Diagnosis: Pulmonary emboli Abdominal pain/ascites Acute CHF with reduced EF Referrals: [facility] [Outside] - 1 Week Physician,None [Primary Care Provider] - 1 Week Discharge Medications: New enoxaparin 80 mg/0.8 mL Syringe 75 mg subcut Q12H 30 Days Qty: 45 0RF morphine 15 mg Tablet 15 mg PO Q8H PRN (Reason: Pain, Severe (Pain Scale 7-10)) Qty: 18 0RF Rx Instructions: Partial Fill upon patient request. Discharge Orders: Discharge Order (Routine); Ordered 07/16/23 Ordered By: Suri Blair Diet: Diabetic diet Activity on Discharge: As tolerated Stand Alone Forms: Patient Portal Discharge page Print Language: Monegasque Care Plan Goals: Abdominal pain/lymphadenopathy/ascites and weakness Pulmonary embolism Take Lovenox 75 mg subQ twice daily Take morphine tablet 15 mg every 8 hours as needed for moderate to severe pain Follow-up with primary care physician Dr. Duffy and [facility] gynecological assistant Oncology Being discharged with VNA and PT services Health Concerns: Cardiomyopathy Plan of Treatment: Outpatient follow-up with Dr. Duffy call for appointment in 1 week Outpatient follow-up at [facility] gynecological assistant Oncology call for appointment Assessment: as above
[2023-07-17 08:23] LABS: Albumin Peritoneal Fluid 2.5
[2023-07-17 08:25] LABS: Total Protein Peritoneal Fluid 3.7
== END 2023-07-16 16:09 | disposition home or self-care (01) | DRG 374 ==
LOC: HO.ED 20:11 → HO.EDOVER 22:56 → HO.IMC 07-14 10:21
PROVIDERS: Physician Assistant; Admitting Provider Student in an Organized Health Care Education/Training Program; Emergency Provider Emergency Medicine; Visit Provider Hospitalist
DX: C48.2 Malignant neoplasm of peritoneum, unspecified (principal); I26.99 Other pulmonary embolism without acute cor pulmonale; I50.21 Acute systolic (congestive) heart failure; I42.9 Cardiomyopathy, unspecified; E87.1 Hypo-osmolality and hyponatremia; R18.0 Malignant ascites; E11.9 Type 2 diabetes mellitus without complications; E87.6 Hypokalemia; I44.7 Left bundle-branch block, unspecified; Z20.822 Contact with and (suspected) exposure to COVID-19; Z79.899 Other long term (current) drug therapy
CPT/HCPCS: 0241U; 36415; 49083; 71275; 74177; 80048; 80053; 80061; 80307; 82010; 82042; 82378; 82803; 82947; 83036; 83605; 83690; 83735; 83880; 84157; 84484; 85025; 85027; 85610; 85652; 85730; 86140; 86301; 86304; 87070; 87073; 87205; 88112; 88341; 88342; 88360; 89051; 93005; 93306; 93970; 97163; 99285; J1650; J1940; J2270; J2405; J3475; P9047; Q9957; Q9967

== ENCOUNTER → 2023-07-12 14:08 | Outpatient (BNV) | payer MEDICARE, SELFPAY | PROVIDERS: Emergency Provider Emergency Medicine; Visit Provider Internal Medicine Cardiovascular Disease | DX: I49.1 Atrial premature depolarization (principal) | CPT/HCPCS: 93010 ==

== ENCOUNTER 2023-07-12 22:14 | Outpatient (BNV) | payer MEDICARE, SELFPAY | END 2023-07-15 11:30 | PROVIDERS: Admitting Provider Student in an Organized Health Care Education/Training Program; Emergency Provider Emergency Medicine; Visit Provider Physician Assistant Surgical | DX: R18.8 Other ascites (principal) | CPT/HCPCS: 49083 ==

== ENCOUNTER 2023-07-12 22:14 | Outpatient (BNV) | payer MEDICARE, SELFPAY | END 2023-07-13 07:00 | PROVIDERS: Admitting Provider Student in an Organized Health Care Education/Training Program; Emergency Provider Emergency Medicine; Visit Provider Internal Medicine Cardiovascular Disease | DX: I35.0 Nonrheumatic aortic (valve) stenosis (principal); I34.0 Nonrheumatic mitral (valve) insufficiency; I36.1 Nonrheumatic tricuspid (valve) insufficiency; I34.81 Nonrheumatic mitral (valve) annulus calcification | CPT/HCPCS: 93306 ==

== ENCOUNTER → 2023-07-12 22:14 | Outpatient (BNV) | payer MEDICARE, SELFPAY | PROVIDERS: Admitting Provider Student in an Organized Health Care Education/Training Program; Emergency Provider Emergency Medicine; Visit Provider Internal Medicine Cardiovascular Disease | DX: I42.9 Cardiomyopathy, unspecified (principal) | CPT/HCPCS: 99222; 99233 ==

== ENCOUNTER → 2023-07-12 22:14 | Outpatient (BNV) | payer MEDICARE, SELFPAY | PROVIDERS: Admitting Provider Student in an Organized Health Care Education/Training Program; Emergency Provider Emergency Medicine; Visit Provider Hospitalist | DX: I42.9 Cardiomyopathy, unspecified (principal); I26.99 Other pulmonary embolism without acute cor pulmonale; J90 Pleural effusion, not elsewhere classified; R18.8 Other ascites; M79.89 Other specified soft tissue disorders | CPT/HCPCS: 99223; 99232; 99233; 99239; G0180 ==

== ENCOUNTER 2023-07-16 22:40 | Emergency (ER) | payer MEDICARE, SELFPAY ==
[2023-07-16 22:54] VITALS: BP 109/52; BP 115/63; PULSE 84; PULSE 90; RESP 18; TEMP 36.7; O2SAT 95; BMI 31.9
--- NOTE | 2023-07-16 23:34 | ED_ITS ---
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 Related Data Previous Rx's ?Medication ?Instructions ?Recorded enoxaparin 80 mg/0.8 mL 75 mg (0.75 mL) subcut Q12H 1 07/16/23 subcutaneous syringe month #45 mL morphine 15 mg immediate release 15 mg PO Q8H PRN Pain, Severe 07/16/23 tablet (Pain Scale 7-10) #18 tabs furosemide 20 mg tablet (Lasix) 20 mg PO QAM #30 tabs 07/17/23 potassium chloride 20 mEq 20 meq PO DAILY #30 tabs 07/17/23 tablet,extended release Allergies Allergy/AdvReac Type Severity Reaction Status Date / Time acetaminophen [From Tylenol] Allergy Difficulty Verified 07/16/23 22:57 Breathing hydromorphone Allergy Difficulty Verified 07/16/23 22:57 Breathing lactose Allergy Gastrointestinal Verified 07/16/23 22:57 Upset codeine AdvReac Intermediate Difficulty Verified 07/16/23 22:57 Breathing Review of Systems Review of Systems: Yes all other systems are reviewed and are negative PMF Past Medical History Medical History (Updated 07/17/23 @ 00:15 by Jesús Hahn MD) Abdominal ascites Pleural effusion Cardiomyopathy Disseminated ovarian cancer Diet-controlled type 2 diabetes mellitus Social History Social History Household Members: None Housing: Apartment Do you presently have visiting nurse or other home services: No Patient Tobacco Use Status: Never used Tobacco Second Hand Smoke Exposure: No service: No Physical Exam Vital Signs: Vital Signs: Last Vital Signs Temp 98.1 F 05/21/24 22:54 Pulse 84 07/16/23 22:54 Resp 18 07/16/23 22:54 BP 109/52 L 07/16/23 22:54 Pulse Ox 95 07/16/23 22:54 O2 Del Method Room Air 07/16/23 22:54 BMI result Body Mass Index 31.9 Appearance: Alert. Oriented X3. No acute distress. Eyes:pallor+ ENT: Pharynx normal. Oral Mucosa moist Neck: Normal inspection. Neck supple. CVS: Normal heart rate and rhythm. Pulses normal. Respiratory: No respiratory distress. Equal air entry bilateral, no wheezing/rales/rhonchi Abdomen: Soft ascites+ Bowel sounds are present, ovarian mass palpable, no CVA tenderness Skin: Skin warm and dry. Normal skin color. Normal skin turgor. Extremities: 3+ lower extremity edema. No calf tenderness Neuro: Oriented X 3. No motor deficit. No sensory deficit.No cerebellar signs , cranial nerves II-XII intact Medical Decision Making Medical Decision Making MDM Narrative: Patient with recent diagnosis of malignant ovarian cancer with ascites with leg edema supposed to see oncologist at [facility] comes here as she could not get her Lovenox and does not have prescription for diuretics. Which was given to the patient advised to continue medical management as advised before Discharge Plan Discharge Clinical Impression: Ovarian malignant neoplasm, Abdominal ascites Patient Disposition: Home, Self-Care Instructions: Ovarian Cancer (DC), Ascites (ED) Additional Instructions: Follow-up with oncologist as scheduled Take medication as prescribed You may take enoxaparin 80 mg twice daily instead of 75 mg Lasix 20 mg daily for increased leg swelling Potassium tablet daily Have extra orange juice coconut water/food containing high potassium when you take Lasix Prescriptions: New furosemide [Lasix] 20 mg tablet 20 mg PO QAM Qty: 30 0RF potassium chloride 20 mEq tablet extended release 20 meq PO DAILY Qty: 30 0RF No Action enoxaparin 80 mg/0.8 mL Syringe 75 mg subcut Q12H 30 Days Qty: 45 0RF morphine 15 mg Tablet 15 mg PO Q8H PRN (Reason: Pain, Severe (Pain Scale 7-10)) Qty: 18 0RF Rx Instructions: Partial Fill upon patient request. Print Language: [place]
== END 2023-07-17 14:01 | disposition home or self-care (01) ==
PROVIDERS: Emergency Provider Internal Medicine
DX: R60.0 Localized edema (principal); D49.59 Neoplasm of unspecified behavior of other genitourinary organ; I42.9 Cardiomyopathy, unspecified; I44.7 Left bundle-branch block, unspecified; Z79.899 Other long term (current) drug therapy
CPT/HCPCS: 99284